=== PATIENT | male | born 1965 | race Caucasian/White ===

== ENCOUNTER → 2020-09-13 10:16 | Outpatient (BNVA) | payer OTHER, SELFPAY | PROVIDERS: PCP Internal Medicine; Visit Provider Internal Medicine ==

== ENCOUNTER → 2020-10-11 10:25 | Outpatient (BNVA) | payer OTHER, SELFPAY | PROVIDERS: PCP Internal Medicine; Visit Provider Internal Medicine ==

== ENCOUNTER → 2021-01-03 10:24 | Outpatient (BNVA) | payer OTHER, SELFPAY | PROVIDERS: PCP Internal Medicine; Visit Provider Internal Medicine ==

== ENCOUNTER 2021-04-11 07:47 | Outpatient (REF) | payer OTHER, SELFPAY ==
--- NOTE | ~2021-04-11 | XR_ITS ---
EXAMINATION: XR SHOULDER, RIGHT CLINICAL INFORMATION: Right shoulder pain. COMPARISON: None TECHNIQUE: AP external rotation, Grashey, scapular Y, and axillary views of the right shoulder. FINDINGS: Mild right acromioclavicular degenerative joint changes are seen. There is no acute fracture or dislocation. The glenohumeral joint is unremarkable. The soft tissues are unremarkable. XR/XR shoulder RT min 2V IMPRESSION: Mild right acromioclavicular degenerative joint changes. No acute abnormality.
== END 2021-04-11 07:48 | disposition home or self-care (01) ==
LOC: HO.HOSX 07:47
PROVIDERS: Visit Provider Physician Assistant
DX: M75.41 Impingement syndrome of right shoulder (principal)
CPT/HCPCS: 73030

== ENCOUNTER 2021-04-14 09:09 | Emergency (ER) | payer OTHER, SELFPAY ==
--- NOTE | ~2021-04-14 | XR_ITS ---
EXAMINATION: XR HAND, LEFT CLINICAL INFORMATION: Avulsion injury distal index finger. COMPARISON: None TECHNIQUE: PA, lateral, and oblique views of the left hand. FINDINGS: There is avulsion injury involving all the soft tissue/nail bed and bony avulsion distal dorsal aspect index finger distal phalangeal tuft. There is overlying dressing which obscures fine osseous and soft tissue detail. There is no dominant soft tissue foreign body. No destructive process or gas tracking in the soft tissues. No dislocation. The remainder of the bony structures appear intact. There are degenerative changes involving the DIP joints, greatest at the fourth and fifth fingers. XR/XR hand LT min 3V IMPRESSION: Soft tissue and bony avulsion at distal dorsal index finger involving the distal phalangeal tuft.
[2021-04-14 09:19] VITALS: BP 109/64; PULSE 95; RESP 18; TEMP 36.7; O2SAT 96; BMI 31.2
--- NOTE | 2021-04-14 10:12 | ED.EXTPRO ---
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 Denies injury to other area. Denies numbness, tingling, weakness. States last tetanus unknown MD Complaint: extremity pain and extremity swelling Related Data Home Medications Medication Instructions Recorded Confirmed albuterol sulfate 90 mcg/actuation 2 puff INHALATION Q6H PRN 09/13/20 aerosol inhaler (ProAir HFA) amlodipine 10 mg tablet 10 mg PO DAILY 09/13/20 lisinopril 10 mg tablet (Zestril) 10 mg PO DAILY 09/13/20 nabumetone 500 mg tablet (Relafen) 500 mg PO BID 09/13/20 simvastatin 20 mg tablet 20 mg PO DAILY 09/13/20 trazodone 100 mg tablet 100 mg PO DAILY 09/13/20 pantoprazole 20 mg tablet,delayed 40 mg PO DAILY 10/11/20 release triamcinolone acetonide 55 mcg 1 spray INTRANASAL DAILY PRN 10/11/20 nasal spray aerosol Previous Rx's Medication Instructions Recorded fluticasone propionate 100 1 inh INHALATION Q12H 30 Days #60 09/13/20 mcg/actuation blister powder for ea inhalation (Flovent Diskus) montelukast 10 mg tablet 10 mg PO BEDTIME #30 tab 03/03/21 cephalexin 500 mg capsule 500 mg PO QID 7 Days #28 cap 04/14/21 oxycodone-acetaminophen 5 mg-325 1 tab PO Q8H PRN 3 Days #9 tab 04/14/21 mg tablet (Percocet) Allergies Allergy/AdvReac Type Severity Reaction Status Date / Time No Known Allergies Allergy Verified 04/11/21 09:21 seasonal Allergy Intermediate sneezing Uncoded 04/11/21 09:21 Review of Systems Review of Systems: Constitutional: No Fever, No Chills Musculoskeletal: + joint pain, No Myalgias, + Joint Swelling Skin: + Skin Lesions, No rash Neuro: No Weakness, No Numbness, No Paresthesias Yes all other systems are reviewed and are negative Neurologic: Denies Sensory deficit (Neuro) FOR[facility], [facility] Past Medical History Attestation statement: The following information was validated with the patient. Medical History Allergic rhinosinusitis Asthma Cough due to bronchospasm Social History Social History (Updated 04/11/21 @ 09:22 by Agus Chapman) Advance Directives: No Advance Directives Information Provided: No Current occupational status: retired Current occupation: lt handed Physical Exam Vital Signs: Vital Signs: Last Vital Signs Temp 98.0 F 04/14/21 09:19 Pulse 95 04/14/21 09:19 Resp 18 04/14/21 09:19 BP 109/64 04/14/21 09:19 Pulse Ox 96 04/14/21 09:19 Body Mass Index 31.2 Const: General: cooperative, healthy appearing, comfortable and no acute distress Orientation/consciousness: patient oriented x3 Limitations: no limitations HENMT: Head: Yes normal to inspection Ears: hearing grossly normal bilaterally General nose exam: Normal external nose present Face and sinus: Yes normal facial exam Eyes: General: appearance normal, both eyes and all related structures EOM: EOMs intact bilaterally Neck: Neck: Yes normal visual inspection and Yes no meningeal signs Resp: Effort & Inspection: normal respiratory effort and no respiratory distress Cardio: Rate: regular rate Peripheral pulses: radial pulses present Skin: Rashes: no rashes Wounds: no wounds Neuro: General: patient oriented x3, tone normal and no meningeal signs Gait exam (Neuro): Normal gait present Sensory Exam: No Sensory deficit (Neuro) Extrem: Other: Please refer to image above. No appreciable visible/palpable bone. No fluctuance/induration Course Course Course Narrative: XR hand LT min 3V IMPRESSION: Soft tissue and bony avulsion at distal dorsal index finger involving the distal phalangeal tuft. >> case discussed with orthopedic KELLY Liriano. 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 On exam VS, NAD/nontoxic. Concern for fracture versus avulsion. Will obtain x-ray and apply dressing/update tetanus Procedures Nerve Block Nerve Block 1: Local Anesthetic: lidocaine 1% Amount of anesthesia used (mL): 5 Side: left Nerve Blocks: digital Procedure Successful: Yes Patient Tolerated Procedure: well Complications: none Discharge Plan Discharge Clinical Impression: Avulsion fracture Avulsion of finger tip Qualifiers: Encounter type: initial encounter Qualified Code(s): S61.209A - Unspecified open wound of unspecified finger without damage to nail, initial encounter Patient Disposition: Home, Self-Care Instructions: Hand Fracture (ED), Skin Avulsion (ED) Additional Instructions: You broke the tip of her finger, this has high likelihood of infection, Keflex as an antibiotic please take as prescribed Percocet will help with pain, please take only when pain is severe for the next 3 days PLEASE CALL THE ORTHOPEDIC HAND SPECIALIST FOR AN APPOINTMENT ON SATURDAY If area begins to look infected, is red, there is drainage from the area, pain becomes unbearable, or you have fever please return to the ED immediately Prescriptions: New cephalexin 500 mg capsule 500 mg PO QID 7 Days Qty: 28 RF: 0 oxycodone-acetaminophen [Percocet] 5-325 mg tablet 1 tab PO Q8H PRN (Reason: pain, severe) 3 Days Qty: 9 RF: 0 No Action montelukast 10 mg tablet 10 mg PO BEDTIME Qty: 30 RF: 2 pantoprazole 20 mg tablet,delayed release (DR/EC) 40 mg PO DAILY RF: 0 triamcinolone acetonide 55 mcg aerosol,spray 1 spray intranasal DAILY PRNRF: 0 albuterol sulfate [ProAir HFA] 90 mcg/actuation HFA aerosol inhaler 2 puff inhalation Q6H PRNRF: 0 nabumetone [Relafen] 500 mg tablet 500 mg PO BID RF: 0 lisinopril [Zestril] 10 mg tablet 10 mg PO DAILY RF: 0 amlodipine 10 mg tablet 10 mg PO DAILY RF: 0 simvastatin 20 mg tablet 20 mg PO DAILY RF: 0 trazodone 100 mg tablet 100 mg PO DAILY RF: 0 Flovent Diskus 100 mcg/actuation blister with device 1 inh inhalation Q12H 30 Days Qty: 60 RF: 2 Referrals: Lizzette Whitaker MD [Physician] - 3 days (On Saturday)
[2021-04-14] MEDS: Lidocaine HCl 1 % MPF 5 ML VIAL SUBCUT (10:21)
[2021-04-14] MEDS: cephALEXin 500 MG CAPSULE PO (10:21)
[2021-04-14] MEDS: oxyCODONE HCl Immed Release 5 MG TABLET PO (10:21)
[2021-04-14] MEDS: Diphth,Pertus(ACell),Tet Adult 0.5 ML SYRINGE IM (11:01)
[2021-04-14 11:07] VITALS: RESP 18
== END 2021-04-14 11:08 | disposition home or self-care (01) ==
PROVIDERS: Emergency Provider Emergency Medicine; PCP Internal Medicine
DX: S62.661B Nondisplaced fracture of distal phalanx of left index finger, initial encounter for open fracture (principal); W31.2XXA Contact with powered woodworking and forming machines, initial encounter; Y93.9 Activity, unspecified; Y92.019 Unspecified place in single-family (private) house as the place of occurrence of the external cause; Y99.9 Unspecified external cause status
CPT/HCPCS: 64450; 73130; 90471; 90715; 99283; 99284

== ENCOUNTER → 2021-04-20 09:05 | Outpatient (BNVA) | payer OTHER, SELFPAY | PROVIDERS: Visit Provider Orthopaedic Surgery ==

== ENCOUNTER → 2021-04-25 07:40 | Day surgery (SDC) | payer OTHER, SELFPAY ==
[2021-04-25 08:26] VITALS: BMI 30.7
[2021-04-25 08:36] VITALS: BP 142/87; PULSE 100; RESP 16; TEMP 36.5; O2SAT 97
--- NOTE | 2021-04-25 09:05 | MHC.SHP ---
Pre-Procedural Eval Section A Date of Service: 04/25/21 The patient is an INPATIENT: No Changes since office visit: No Cold of Flu in the past 2 weeks, No New Medical Problems, No Changes in Medication and No Patient answered all questions The History & Physical has been completed within 30 days and I have reviewed it.: Yes Section B Chief Complaint: Displaced Fracture of Distal Phalanx, Allergies: Allergies Allergy/AdvReac Type Severity Reaction Status Date / Time No Known Allergies Allergy Verified 04/20/21 09:17 seasonal Allergy Intermediate sneezing Uncoded 04/11/21 09:21 Plan I have reviewed the history and physical and performed a pertinent physical examination on my patient. No changes have occurred unless specified.
--- NOTE | 2021-04-25 09:06 | W.PM.OPN ---
Operative Note Operative Note Date of Service: 04/25/21 Narrative:
--- NOTE | 2021-04-25 10:20 | PC.NURSE ---
MD COLUNGA BY BEDSIDE AND EVALUATED PATIENT. SURGERY CANCELLED PER MD COLUNGA. MD WRAPPED PATIENT WITH XEROFORM, 2X2 AND CROBAN. PATIENT ALREADY HAS A FOLLOWUP APPT TO BE SEEN IN TWO WEEKS. PER PATIENT VERBALIZED HOW TO TAKE CARE OF HIS DRESSING. OKAY TO LEAVE. RIDE CALLED TO BE PICKED UP. NO OTHER COMPLAINTS.
--- NOTE | 2021-04-25 10:46 | PM.PNORT ---
Subjective Subjective Date of Service: 04/25/21 Principal diagnosis: Left index finger wound Interval history: The patient was seen in preop hold today for his left index finger. He said that he has been performing daily wound care and he feels like his finger looks quite a bit better. He was scheduled for a revision amputation for this table saw injury to the dorsal aspect of the left index finger involving the sterile nail matrix and the dorsal aspect of the distal phalanx. Physical Exam Vital Signs: Vital Signs: Last Vital Signs Temp 97.7 F 04/25/21 08:36 Pulse 100 04/25/21 08:36 Resp 16 04/25/21 08:36 BP 142/87 H 04/25/21 08:36 Pulse Ox 97 04/25/21 08:36 Body Mass Index 30.7 Extrem: Other: His swelling has improved, and he can now flex his left index finger fingertip to touch the thenar aspect of his hand, and bring it out into full extension. In evaluating the wound over the nail bed, he appears to have some healthy granulation tissue now, and the wound appears to have contracted some. Drainage on the dressing is scant. Again the nail plate is intact through the eponychial fold to a distance of about 4 mm, and a portion of the nail is intact more distally along the radial edge. Overall the wound appearance is improved with this granulation tissue and some contraction of the wound. No evidence of infection at present. Again the volar flap of tissue over the distal phalanx is healthy with good cap refill. Procedures Date of Service Date of Service: 04/25/21 Progress Note: A&P Assessment and plan (1) Open fracture of distal phalanx of left index finger: Status: Acute (2) Injury of nail bed of finger of left hand: Status: Acute Assessment and Plan: Assessment and plan: 1. Left index finger table saw injury involving the sterile matrix of the nail bed, and resulting in an open fracture of the dorsal aspect of the distal phalanx. We had planned to take him to the operating room today for a revision amputation. However, the wound bed does appear to have improved considerably. There is now healthy granulation tissue and some contraction of the wound bed making the wound smaller. I talked with the patient about this. They are certainly risks and benefits to anything including allowing this to heal. Risks of allowing this to heal are that he may still require surgery at a later date, or could develop osteomyelitis of the distal phalanx which would need to be treated with a 6 week plus course of antibiotics and further surgery. However, I think that there is a reasonable chance at this point that he may have adequate soft tissue coverage and not necessitate a revision amputation. Another possibility is that the fingernail may not, and will likely not, it here to this soft tissue that is healing over the bone. If this starts causing problems with catching on clothing etc., he knows that we can also return to the operating room to remove part or all of the nail apparatus as needed. With that being said, the patient is happy to try to allow this to heal with non operative management. I have canceled his surgery. He will continue his antibiotics until they are finished later this week. He will follow-up as scheduled for wound check with me in about 2 weeks. He knows to contact us sooner if he is having any problems. A new dressing was placed on the wound before he left. I did educate him about wound care which she will perform every day. Time Spent With Patient Time: Total time spent is greater than 50% in coordination of care (as documented) at patient's floor/unit and/or counseling patient: Time with patient: 15 - 24 minutes Quality Stroke Does the patient have a stroke diagnosis?: No VTE Prior VTE?: No VTE Risk Level:: Surgical - low VTE Device Contraindication: Treatment Not Indicated VTE Drug Contraindication: Treatment Not Indicated
== END ==
PROVIDERS: PCP Internal Medicine; Visit Provider Orthopaedic Surgery
DX: S62.631B Displaced fracture of distal phalanx of left index finger, initial encounter for open fracture (principal); Z53.8 Procedure and treatment not carried out for other reasons; W29.8XXA Contact with other powered hand tools and household machinery, initial encounter; Y93.9 Activity, unspecified; Y92.9 Unspecified place or not applicable; Y99.8 Other external cause status

== ENCOUNTER 2021-04-27 18:44 | Outpatient (REF) | payer OTHER, SELFPAY ==
--- NOTE | ~2021-04-27 | MR_ITS ---
EXAMINATION: MR SHOULDER WITHOUT CONTRAST, RIGHT CLINICAL INFORMATION: Impingement syndrome. Decreased range of motion. COMPARISON: Right shoulder radiographs dated 04/11/2021. TECHNIQUE: MRI of the shoulder without contrast was performed on a high-field scanner. FINDINGS: ROTATOR CUFF: Supraspinatus tendinosis with central full-thickness partial tearing measuring 1.2 x 1.4 cm (AP by ML). No muscle atrophy or fatty infiltration. BICEPS: Normal. CORACOACROMIAL ARCH: The undersurface of the acromion is curved with no subacromial spur. Moderate acromioclavicular osteoarthritis. Fluid within the subacromial subdeltoid bursa related to the full-thickness rotator cuff tendon defect. LABRUM/CAPSULE: Shallow fluid extending into the undersurface of the superior labrum, which could represent a nondisplaced undersurface tear. Edema adjacent to the inferior joint capsule, which could indicate a capsular sprain. GLENOHUMERAL JOINT/MARROW: Intact articular cartilage. Small glenohumeral joint effusion. MR/MR shoulder RT wo con IMPRESSION: 1. Supraspinatus tendinosis with a central full-thickness partial tear measuring 1.2 x 1.4 cm (AP by ML). 2. Moderate acromioclavicular osteoarthritis. 3. Possible nondisplaced undersurface tear of the superior labrum. 4. Edema adjacent to the inferior joint capsule, which could indicate a capsular sprain. 5. Small glenohumeral joint effusion.
== END 2021-04-27 18:45 | disposition home or self-care (01) ==
LOC: HO.MRI 18:44
PROVIDERS: PCP Internal Medicine; Visit Provider Physician Assistant
DX: M75.41 Impingement syndrome of right shoulder (principal)
CPT/HCPCS: 73221

== ENCOUNTER → 2021-05-08 10:24 | Outpatient (BNVA) | payer OTHER, SELFPAY | PROVIDERS: Visit Provider Orthopaedic Surgery ==

== ENCOUNTER → 2021-05-12 12:54 | Outpatient (BNVA) | payer OTHER, SELFPAY | PROVIDERS: Visit Provider Physician Assistant ==

== ENCOUNTER → 2021-06-12 14:42 | Outpatient (BNVA) | payer OTHER, SELFPAY | PROVIDERS: Visit Provider Physician Assistant ==

== ENCOUNTER 2021-06-14 06:12 | Day surgery (SDC) | payer OTHER, SELFPAY ==
[2021-06-07 15:43] VITALS: BMI 31.4
--- NOTE | 2021-06-13 08:55 | HO.ANESPROP2 ---
Documented by User: Pam Pena NP 06/13/21 09:00 HPI - Anesthesia Eval Consult details Narrative: 55yo M for Right Arthroscopic Rotator Cuff Repair PMFSH Active Problems Active Problems: All Active Problems (Updated 06/08/21 @ 12:36 by Astrid Wood RN) Internal impingement of right shoulder (Acute) Open fracture of distal phalanx of left index finger (Acute) Injury of nail bed of finger of left hand (Acute) Rotator cuff tear arthropathy of right shoulder (Acute) Asthma (Acute) Cough due to bronchospasm (Acute) Allergic rhinosinusitis (Acute) Past Medical History Medical History Allergic rhinosinusitis Arthritis Asthma Cough due to bronchospasm Elevated cholesterol Environmental allergies GERD (gastroesophageal reflux disease) HTN (hypertension) Seasonal allergies Surgical History Surgical History Hx of colonoscopy Social History Social History Are you a primary career orientation teacher to a significant other at home: No Do you presently have visiting nurse or other home services: No Patient Tobacco Use Status: Never used Tobacco Are you DNR?: No Advance Directives: Yes Advance Directives Information Provided: No Advance Directives on File: Yes Advance Directives Date on File: 06/14/21 Current occupational status: retired Current occupation: lt handed Meds Allergies Allergy/AdvReac Type Severity Reaction Status Date / Time Seasonal Allergies Allergy Sneezing, Verified 06/14/21 06:25 coughing Home Medications Medication Instructions Recorded Confirmed Last Taken Type albuterol sulfate 90 mcg/actuation 2 puff INHALATION Q6H PRN 09/13/20 06/07/21 Unknown History aerosol inhaler (ProAir HFA) amlodipine 10 mg tablet 10 mg PO DAILY 09/13/20 06/07/21 06/14/21 05:30 History lisinopril 10 mg tablet (Zestril) 10 mg PO DAILY 09/13/20 06/07/21 Unknown History nabumetone 500 mg tablet (Relafen) 500 mg PO BID 09/13/20 06/07/21 Unknown History simvastatin 20 mg tablet 20 mg PO DAILY 09/13/20 06/07/21 Unknown History trazodone 100 mg tablet 100 mg PO BEDTIME 09/13/20 06/07/21 Unknown History pantoprazole 20 mg tablet,delayed 40 mg PO DAILY 10/11/20 06/07/21 06/14/21 05:30 History release triamcinolone acetonide 55 mcg 1 spray INTRANASAL DAILY PRN 10/11/20 06/07/21 Unknown History nasal spray aerosol Exam Exam Date and Time: June 13, 2021 0855 Height,Weight and Vital Signs: Height 5 ft 5 in Weight 85.729 kg Assessment and Plan Assessment Anesthesia Assessment: Chart Reviewed Documented by User: Ailin Tomlinson MD 06/14/21 08:36 PMFSH Past Medical History Medical History Allergic rhinosinusitis Arthritis Asthma Cough due to bronchospasm Elevated cholesterol Environmental allergies GERD (gastroesophageal reflux disease) HTN (hypertension) Seasonal allergies Family History Family history of problems with anesthesia: No Surgical History Surgical History Hx of colonoscopy History of Problems with Anesthesia: No Social History Social History Are you a primary career orientation teacher to a significant other at home: No Do you presently have visiting nurse or other home services: No Patient Tobacco Use Status: Never used Tobacco Are you DNR?: No Advance Directives: Yes Advance Directives Information Provided: No Advance Directives on File: Yes Advance Directives Date on File: 06/14/21 Current occupational status: retired Current occupation: lt handed Meds Allergies Allergy/AdvReac Type Severity Reaction Status Date / Time Seasonal Allergies Allergy Sneezing, Verified 06/14/21 06:25 coughing Home Medications Medication Instructions Recorded Confirmed Last Taken Type albuterol sulfate 90 mcg/actuation 2 puff INHALATION Q6H PRN 09/13/20 06/07/21 Unknown History aerosol inhaler (ProAir HFA) amlodipine 10 mg tablet 10 mg PO DAILY 09/13/20 06/07/21 06/14/21 05:30 History lisinopril 10 mg tablet (Zestril) 10 mg PO DAILY 09/13/20 06/07/21 Unknown History nabumetone 500 mg tablet (Relafen) 500 mg PO BID 09/13/20 06/07/21 Unknown History simvastatin 20 mg tablet 20 mg PO DAILY 09/13/20 06/07/21 Unknown History trazodone 100 mg tablet 100 mg PO BEDTIME 09/13/20 06/07/21 Unknown History pantoprazole 20 mg tablet,delayed 40 mg PO DAILY 10/11/20 06/07/21 06/14/21 05:30 History release triamcinolone acetonide 55 mcg 1 spray INTRANASAL DAILY PRN 10/11/20 06/07/21 Unknown History nasal spray aerosol Exam Height,Weight and Vital Signs: Height 5 ft 5 in Weight 85.729 kg Vital Signs Temp Pulse Resp BP Pulse Ox 06/14/21 06:30 97.9 F 93 16 119/78 96 Airway Mallampati Class: III TM Dist: >3cm Neck ROM: Full Loose/Missing/Broken Teeth: Yes (Extractions) Heart: RRR Lungs: CTAB. No wheezes Assessment and Plan Assessment Anesthesia Assessment: Anesthesia Plan Discussed Final Anesthetic Review Family History of Problems with Anesthesia: No History of Problems with Anesthesia: No NPO: Yes ASA Class: II Final Preanesthetic Review: No Changes in Pt Med Stat, Meds/Allgs Chart Reviewed, Consent Obtained/Reviewed and Anes Risks/Benef Reviewed Patient Risk: Intermediate Procedure Risk: Low Assessment/Block/Sedation in SS: Assess/Block/Sedation-SS Anesthetic Plan Anesthetic Plan: GA and Regional Block (Right Interscalene brachial plexus block) Disposition: Standard PACU
[2021-06-14] VITALS (7 sets, daily range): BP systolic 109–127; BP diastolic 67–78; PULSE 83–93; RESP 16–20; TEMP 36.1–36.8; O2SAT 94–98
[2021-06-14] MEDS: Lactated Ringers 1,000 ML 100 ML IVCONT (06:43)
--- NOTE | 2021-06-14 07:27 | MHC.SHP ---
Pre-Procedural Eval Section A Date of Service: 06/14/21 The patient is an INPATIENT: No Changes since office visit: Yes Patient answered all questions; No Cold of Flu in the past 2 weeks, No New Medical Problems and No Changes in Medication The History & Physical has been completed within 30 days and I have reviewed it.: Yes Section B Chief Complaint: rotator cuff tear Allergies: Allergies Allergy/AdvReac Type Severity Reaction Status Date / Time Seasonal Allergies Allergy Sneezing, Verified 06/14/21 06:25 coughing Plan I have reviewed the history and physical and performed a pertinent physical examination on my patient. No changes have occurred unless specified.
--- NOTE | 2021-06-14 10:13 | PM.OP ---
Brief Operative Note Date of Service: 06/14/21 Pre-op diagnosis: rotator cuff tear Post-op diagnosis: other (rotator cuff tear, genet, adhesive capsulitis) Procedure: rotator cuff repair, SAD and capsulotomy Implants: mcallister and nephew 5.0 helacoil and 3 looped suture Surgeon: Lukas Arcos MD Anesthesia: GETA and regional Was an Energy Trading Analyst used for this Procedure?: Yes Energy Trading Analyst: Deandra Poole Estimated blood loss (mL): 10 IV fluids (mL): 1,000 Pathology: none sent Condition: stable Disposition: PACU
--- NOTE | 2021-06-14 10:26 | P.OP_ITS ---
Operative Note Operative Note Date of Service: 06/14/21 Narrative: Pre-op diagnosis: rotator cuff tear Post-op diagnosis: other (rotator cuff tear, genet, adhesive capsulitis) Procedure: rotator cuff repair, SAD and capsulotomy Implants: mcallister and nephew 5.0 helacoil and 3 looped suture Surgeon: Lukas Arcos MD Anesthesia: GETA and regional Was an Farm Or Ranch Animal Caretaker used for this Procedure?: Yes Farm Or Ranch Animal Caretaker: Deandra Poole Estimated blood loss (mL): 10 IV fluids (mL): 1,000 Pathology: none sent Condition: stable Disposition: PACU Procedure in detail: Patient was brought to the operating room and placed the the beach chair position. All bony prominences were well padded and the limb was prepped and draped in standard sterile fashion. A time out was called to identify proper site, proper procedure and proper surgeon. IV antibiotics per weight were administered. I began by making a posterolateral stab incision with a 15 blade. A blunt trochar was placed into the glenohumeral joint and I insufflated the joint with saline and a 30 degree arthroscope was placed. The joint was extremely tight and difficult to enter. I established an outside- in anterior portal just distal to the biceps tendon. Once in the joint there was synovitis of the anterior capsule. Cartilage, labrum,biceps tendon were intact. There was fraying adjacent to the biceps tendon. I used cautery to open the anterior interval and the anterior capsule. After the anterior inbterval synovectomy and capsulotomy I r emoved instrumentation and entered the subacromial space. His external rotation with 35-40 deg on so I was suprised by the joint stiffness. I then removed the trochar and entered the subacromial space. A direct lateral portal was then established and I performed a bursectomy. The cuff was then examined. There was frayingof the cuff especially the infraspinatus tndon body and the leading edge of the suprspinatus. I used a shaver to probe the tendon and there was a near full thickness tear of the leading edge of the suprspinatus. I debrided this to full thickness and then placed 3 looped sutures and attached it to a 5.0 helacoil anchor. Once this was done I performed a 5mm subacromial decompression and released the CA ligament. I then re-examined the suff and took my final pictures. All instrumentation was removed and the protals closed with nylon and covered with sterile dressing. The patient was and brought to the recovery room in stable condition. There were no known complications.
== END 2021-06-14 12:02 | disposition home or self-care (01) ==
PROVIDERS: PCP Internal Medicine; Visit Provider Orthopaedic Surgery
PROC: (CPT 29827; principal; 2021-06-14 07:30)
DX: M75.101 Unspecified rotator cuff tear or rupture of right shoulder, not specified as traumatic (principal); M75.01 Adhesive capsulitis of right shoulder; M25.611 Stiffness of right shoulder, not elsewhere classified; M12.811 Other specific arthropathies, not elsewhere classified, right shoulder; J45.909 Unspecified asthma, uncomplicated; Z79.51 Long term (current) use of inhaled steroids; Z79.899 Other long term (current) drug therapy
CPT/HCPCS: 29827; 29826; C1713; J0171; J0690; J1100; J2250; J2370; J2405; J3010

== ENCOUNTER → 2021-06-26 13:09 | Outpatient (BNVA) | payer OTHER, SELFPAY | PROVIDERS: Visit Provider Physician Assistant ==

== ENCOUNTER → 2021-07-24 13:04 | Outpatient (BNVA) | payer OTHER, SELFPAY | PROVIDERS: Visit Provider Physician Assistant ==

== ENCOUNTER → 2021-09-04 09:39 | Outpatient (BNVA) | payer OTHER, SELFPAY | PROVIDERS: Visit Provider Orthopaedic Surgery ==

== ENCOUNTER 2021-09-20 10:58 | Outpatient (REF) | payer OTHER, SELFPAY ==
--- NOTE | ~2021-09-20 | XR_ITS ---
EXAMINATION: XR CHEST CLINICAL INFORMATION: Asthma COMPARISON: Previous chest x-ray from 2008 TECHNIQUE: 2 views of the chest were obtained. FINDINGS: The cardiac and mediastinal contours are stable. The lungs are clear. There is no pleural effusion or pneumothorax. There are new postsurgical changes to the right shoulder. XR/XR chest 2V IMPRESSION: No evidence for acute disease in the chest.
--- NOTE | ~2021-09-20 | XR_ITS ---
EXAMINATION: XR SINUSES CLINICAL INFORMATION: Asthma. COMPARISON: None TECHNIQUE: 3 views of the sinuses were obtained. FINDINGS: There is good opacification of bilateral paranasal sinuses and mastoid air cells. No mucoperiosteal thickening or air-fluid levels seen. The bony sinus khan are intact. The soft tissues are normal. The mastoid air cells are well-aerated. XR/XR sinus thao view IMPRESSION: Unremarkable sinus exam. Unremarkable mastoid sinus exam.
== END 2021-09-20 10:59 | disposition home or self-care (01) ==
LOC: HO.XRAY 10:58
PROVIDERS: PCP Internal Medicine; Visit Provider Internal Medicine
DX: J45.909 Unspecified asthma, uncomplicated (principal)
CPT/HCPCS: 70210; 71046

== ENCOUNTER 2021-10-02 08:00 | Outpatient (RCR) | payer OTHER, SELFPAY ==
--- NOTE | 2021-06-20 08:59 | MHC.PT.EP ---
[facility] [place] Office [place] [facility] [place] Office [address] Harman Jones [address] [phone] F: [phone] F: [phone] F: [phone] F: [phone] Physical Therapy Plan of Care Date of Evaluation: Date of Surgery: 06/14/21 Diagnosis: S/P ROTATOR CUFF REPAIT Assessment: JOSEF PRESENTS S/P RCR AND SAD 06/14/21. UPON EXAM HE DEMONSTRATES THE EXPECTED IMPAIRMENTS OF DECREASED ROM, DECREASED STRENGTH, ALTERED POSTURE AND POSITIONING, INCREASED EDEMA AND PAIN. FUNCTIONAL LIMITATIONS INCLUDE DECREASED ABILITY TO PERFORM ADLs AND HOMEMAKING TASKS, DECREASED ABILITY TO PERFORM LIFTING, REACHING, PUSHING AND PULLING, INABILITY TO REACH INTO CABINETS OR SHELVES. DECREASED PARTICIPATION IN COMMUNITY AND RECREATIONAL ACTIVITIES, DISRUPTED SLEEP. Frequency and Duration: The patient will be seen 2 X WEEK FOR 12 WEEKS Short Term Goals: initiate HEP and promote self management of symptoms in 2 visits Full PROM in 6 weeks Sediment Remediation Consultant Goals: Full, pain free ROM in 12 weeks Full UE strength, pain free in 16 weeks To perform computer and homemaking without restriction and pain no greater than 2/10 in [address] at minimum of 5# into cabinet at shoulder height in 12 weeks [ End ] Treatment Plan: Modalities to reduce pain, spasms and effusion. Manual therapy to restore motion and function. Therapeutic exercise to improve strength and flexibility. Neuromuscular re-education for posture and balance. Therapeutic activities to return to functional activities of daily living. Electronically signed by: HECTOR BLACKWOOD PT, DPT Please sign and return to therapist. Thank you for your referral.
== END 2021-11-13 14:59 | disposition home or self-care (01) ==
LOC: HO.PT 08:00
PROVIDERS: Visit Provider Orthopaedic Surgery
DX: M75.41 Impingement syndrome of right shoulder (principal); M75.101 Unspecified rotator cuff tear or rupture of right shoulder, not specified as traumatic; M12.811 Other specific arthropathies, not elsewhere classified, right shoulder
CPT/HCPCS: 97110; 97140; 97161

== ENCOUNTER → 2021-10-16 09:44 | Outpatient (BNVA) | payer OTHER, SELFPAY | PROVIDERS: PCP Internal Medicine; Visit Provider Internal Medicine ==

== ENCOUNTER → 2021-11-27 09:27 | Outpatient (BNVA) | payer OTHER, SELFPAY | PROVIDERS: PCP Internal Medicine; Visit Provider Orthopaedic Surgery | DX: M71.21 Synovial cyst of popliteal space [Baker], right knee (principal); Z98.890 Other specified postprocedural states | CPT/HCPCS: 20610; J1100 ==

== ENCOUNTER 2021-12-13 09:00 | Outpatient (RCR) | payer OTHER, SELFPAY | END 2022-01-01 12:47 | disposition home or self-care (01) | LOC: HO.PT 09:00 | PROVIDERS: Visit Provider Physician Assistant Surgical | DX: M22.41 Chondromalacia patellae, right knee (principal); M22.42 Chondromalacia patellae, left knee | CPT/HCPCS: 97035; 97110; 97140; 97161 ==

== ENCOUNTER 2022-08-21 12:18 | Emergency (ER) | payer OTHER, SELFPAY ==
--- NOTE | ~2022-08-21 | XR_ITS ---
EXAMINATION: XR CHEST CLINICAL INFORMATION: Cough and shortness of breath COMPARISON: 09/20/2021 TECHNIQUE: 2 views of the chest were obtained. FINDINGS: Lungs are well-inflated and clear. Trachea is midline in position. No interstitial disease, consolidation or mass. No pleural effusion or pneumothorax. Cardiac silhouette and pulmonary vessels are normal in size. The mediastinum and andres have normal contour. Appears to be a small suture anchor in the right femoral head. Otherwise, the visualized bones, and upper abdomen, are unremarkable. XR/XR chest 2V IMPRESSION: No acute cardiopulmonary abnormality. No evidence of pneumonia.
--- NOTE | 2022-08-21 12:38 | ED_ITS ---
HPI - SOB/Dyspnea General Chief Complaint: Upper Respiratory Symptoms <KELLY Ochoa - Last Filed: 08/21/22 12:43> Stated Complaint: COVID+/SOB/Cough <KELLY Ochoa - Last Filed: 08/21/22 12:43> Time Seen by Provider: 08/21/22 14:26 <KELLY Ochoa - Last Filed: 08/21/22 12:43> Source: patient <Summer Lopez CNP - Last Filed: 08/21/22 15:04> Mode of arrival: ambulatory <Summer Lopez CNP - Last Filed: 08/21/22 15:04> Limitations: no limitations <Summer Lopez CNP - Last Filed: 08/21/22 15:04> History of Present Illness HPI Narrative: Patient is a 56-year-old male who presents to the emergency department for evaluation of increasing shortness of breath and cough. Patient reports symptom onset to be approximately 2 weeks ago. Last week he was evaluated for similar symptoms, states he was given a prescription for azithromycin, prednisone, and Tessalon Perles which did provide improvement in symptoms initially. Yesterday he took a home COVID-19 test which resulted as positive. He states that his and his sister are also ill with similar symptoms. He denies fevers, chills, sore throat, chest pain, dyspnea on exertion. <Summer Lopez CNP - Last Filed: 08/21/22 15:04> Related Data Home Medications: Home Medications Medication Instructions Recorded Confirmed amlodipine 10 mg tablet 10 mg PO DAILY 09/13/20 10/16/21 nabumetone 500 mg tablet (Relafen) 500 mg PO BID 09/13/20 10/16/21 simvastatin 20 mg tablet 20 mg PO DAILY 09/13/20 10/16/21 trazodone 100 mg tablet 100 mg PO BEDTIME 09/13/20 10/16/21 pantoprazole 20 mg tablet,delayed 40 mg PO DAILY 10/11/20 10/16/21 release triamcinolone acetonide 55 mcg 1 spray intranasal DAILY PRN 10/11/20 10/16/21 nasal spray aerosol Allergic Symptoms Previous Rx's Medication Instructions Recorded fluticasone 250 mcg-salmeterol 50 1 inh inhalation BID COUGH/ ASTHMA 09/04/21 mcg/dose blistr powdr for 30 days #60 ea inhalation (Advair Diskus) albuterol sulfate 90 mcg/actuation 2 puff inhalation Q6H PRN 09/25/21 aerosol inhaler (ProAir HFA) Shortness Of Breath Or Wheezing 30 days #8.5 grams montelukast 10 mg tablet 10 mg PO BEDTIME #30 tabs 05/29/22 benzonatate 100 mg capsule 100 mg PO BID PRN cough #14 caps 08/21/22 hydrocodone-homatropine 5 mg-1.5 5 ml PO Q4-6H PRN cough #200 mL 08/21/22 mg/5 mL (5 mL) oral syrup (Hycodan) <KELLY Ochoa - Last Filed: 08/21/22 12:43> Allergies/Adverse Reactions: Allergies Allergy/AdvReac Type Severity Reaction Status Date / Time Seasonal Allergies Allergy Sneezing, Verified 10/16/21 10:11 coughing <KELLY Ochoa - Last Filed: 08/21/22 12:43> Review of Systems Review of Systems: Constitutional: No fever. No chills. No weakness. No fatigue. ENT/ Mouth: No Ear Pain, positive Nasal Congestion, no sore throat, No Rhinorrhea, No Swallowing Difficulty Skin: No rash or itching. Cardiovascular: No chest pain. No palpitations. Respiratory: Positive shortness of breath. Positive cough. No sputum production. Gastrointestinal: No nausea. No vomiting. No diarrhea. No abdominal pain. Genitourinary: No burning micturition. No urinary frequency. Neurologic: No headache. No dizziness. No syncope. No numbness or tingling in the extremities. Musculoskeletal: No muscle pain. No back pain. No joint pain or stiffness. <Summer Lopez CNP - Last Filed: 08/21/22 15:04> Yes all other systems are reviewed and are negative <Summer Lopez CNP - Last Filed: 08/21/22 15:04> [facility] Past Medical History Attestation statement: The following information was validated with the patient. <Summer Lopez CNP - Last Filed: 08/21/22 15:04> Source: old records reviewed <Summer Lopez CNP - Last Filed: 08/21/22 15:04> Medical History: Medical History Allergic rhinosinusitis Arthritis Asthma Cough due to bronchospasm Elevated cholesterol Environmental allergies GERD (gastroesophageal reflux disease) HTN (hypertension) Seasonal allergies <KELLY Ochoa - Last Filed: 08/21/22 12:43> Surgical History: Surgical History Hx of colonoscopy <KELLY Ochoa - Last Filed: 08/21/22 12:43> Social History Social History: Social History Are you a primary account executive healthcare to a significant other at home: No Do you presently have visiting nurse or other home services: No Alcohol intake: current Alcohol intake frequency: holidays/special occasions only Patient Tobacco Use Status: Never used Tobacco Smoked in Last 30 Days: No Use of substances other than those prescribed or required for medical reasons: No Advance Directives: Yes Advance Directives on File: Yes Advance Directives Date on File: 06/14/21 Current occupational status: retired Current occupation: lt handed <KELLY Ochoa - Last Filed: 08/21/22 12:43> Physical Exam Vital Signs: Vital Signs: Last Vital Signs Temp 97.1 F 08/21/22 12:39 Pulse 104 H 08/21/22 14:29 Resp 16 08/21/22 14:29 BP 135/95 H 08/21/22 14:29 Pulse Ox 94 08/21/22 14:29 O2 Del Method 08/21/22 14:29 BMI result Body Mass Index 32.4 <KELLY Ochoa - Last Filed: 08/21/22 12:43> Vital Signs: Last Vital Signs Temp 97.1 F 08/21/22 12:39 Pulse 104 H 08/21/22 14:29 Resp 16 08/21/22 14:29 BP 135/95 H 08/21/22 14:29 Pulse Ox 94 08/21/22 14:29 O2 Del Method 08/21/22 14:29 BMI result Body Mass Index 32.4 <Summer Lopez CNP - Last Filed: 08/21/22 15:04> Appearance: Alert.?Oriented to person, place and time. No acute distress.?Normal affect. Eyes: Pupils equal, round and reactive to light.? ENT: TM normal bilaterally. Pharynx normal.?? Neck: Normal inspection.? Neck supple.??No cervical adenopathy CVS: Heart sounds normal. Normal heart rate and rhythm.? Pulses normal.?? Respiratory: No respiratory distress.? Lung sounds clear to auscultation bilaterally?? Abdomen: Soft and non-tender. Normoactive bowel sounds. Skin: Skin warm and dry.? Normal skin color.? ? Extremities: No lower extremity edema.? Neuro: Moves all extremities spontaneously. Sensation intact bilaterally. No motor deficits. Ambulates with normal steady gait. <Summer Lopez CNP - Last Filed: 08/21/22 15:04> Course Course Course Narrative: RME--56 yo M w/PMHx asthma and COVID+ on home test yesterday c/o increasing SOB and nonproductive cough Was seen last week for similar sx, finished course of Z-nati, prednisone and tessalon pearls with relief Lungs CTA on exam, nontoxic appearing, tachycardic in triage but actively coughing CXR, albuterol, Tessalon Perles and Hycodan ordered in triage <KELLY Ochoa - Last Filed: 08/21/22 12:43> Medications Administered Discontinued Medications Generic Name Dose Route Start Last Admin Trade Name Freq PRN Reason Stop Dose Admin Albuterol Sulfate 4 puff 08/21/22 12:39 08/21/22 13:22 Albuterol Sulfate 90 Mcg 8 Gm Inhaler INHALE 08/21/22 12:40 4 puff ONCE ONE Administration <KELLY Ochoa - Last Filed: 08/21/22 12:43> Medications Administered Discontinued Medications Generic Name Dose Route Start Last Admin Trade Name Freq PRN Reason Stop Dose Admin Albuterol Sulfate 4 puff 08/21/22 12:39 08/21/22 13:22 Albuterol Sulfate 90 Mcg 8 Gm Inhaler INHALE 08/21/22 12:40 4 puff ONCE ONE Administration <Summer Lopez CNP - Last Filed: 08/21/22 15:04> Medical Decision Making Medical Decision Making MDM Narrative: Patient is a 56-year-old male with a past medical history of asthma, hypertension, GERD who presents to the emergency department for evaluation of shortness of breath and cough in the setting of COVID-19 infection. Patient was symptom onset 2 weeks ago, positive testing for COVID-19 as of yesterday. At this time be outside of the window for treatment with Paxlovid. He is nontoxic in appearance, ambulatory with a steady gait, no respiratory distress, lung sounds are clear. Chest x-ray obtained is without evidence of pneumonia. Reviewed RME from triage, patient was given an albuterol inhaler was instructed to take 4 puffs at that time, he reports improvement in his shortness of breath currently. He remains mildly tachycardic with heart rate 104, no tachypnea or hypoxia. We reviewed bronchitis, expected duration of symptoms after viral illnesses. We discussed plan of care for discharge home, will send prescription for Hycodan and Tessalon to patient's pharmacy. Discussed worrisome signs and symptoms that would warrant re-evaluation in the emergency department, otherwise advised outpatient follow-up with primary care provider. All questions were answered. He is stable for discharge. <Summer Lopez CNP - Last Filed: 08/21/22 15:04> Differential Diagnosis Differential Diagnoses: The differential diagnosis associated with the presentation includes (As noted above) <Summer Lopez CNP - Last Filed: 08/21/22 15:04> Independent Interpretation I performed an independent interpretation of an: Plain X-Ray <Summer Lopez CNP - Last Filed: 08/21/22 15:04> Interpretation: I personally interpreted chest x-ray and agree with the radiologist impression <Summer Lopez CNP - Last Filed: 08/21/22 15:04> Radiology Impression Discussion of test interpretation with radiology: I have reviewed the radiologist's reading. <Summer Lopez CNP - Last Filed: 08/21/22 15:04> Radiologist Impression: XR/XR chest 2V IMPRESSION: No acute cardiopulmonary abnormality. No evidence of pneumonia. <Summer Lopez CNP - Last Filed: 08/21/22 15:04> Prescription Management I considered prescription management with: Other (Patient provided with albuterol inhaler from the emergency department, sending prescription for Tessalon and hike a did to patient's pharmacy) <Summer Lopez CNP - Last Filed: 08/21/22 15:04> Chronic Conditions Patient?s care impacted by: Hypertension and Other (Asthma) <Summer Lopez CNP - Last Filed: 08/21/22 15:04> Discharge Plan Discharge Clinical Impression: COVID-19, Bronchitis <KELLY Ochoa - Last Filed: 08/21/22 12:43> Patient Disposition: Home, Self-Care <KELLY Ochoa - Last Filed: 08/21/22 12:43> Instructions: Acute Bronchitis (ED) <KELLY Ochoa - Last Filed: 08/21/22 12:43> Additional Instructions: As we discussed, please continue to rest over the next few days. CDC guidance for isolation with COVID-19 infection advises 5 days of isolation from symptom onset or positive testing whichever came first. You have been ill for greater than 5 days. You may end isolation if your symptoms are improving and you are without a fever for 24 hour. Without the use of Tylenol or ibuprofen. Use albuterol inhaler 2 puffs every 4-6 hours as needed for shortness of breath or wheezing. A prescription for Hycodan cough syrup and Tessalon was sent to your pharmacy Please return back to emergency department with any new or worsening symptoms or concerns. Please follow-up with your primary care provider as needed for persistent symptoms. <KELLY Ochoa - Last Filed: 08/21/22 12:43> Prescriptions: New benzonatate 100 mg capsule 100 mg PO BID PRN (Reason: cough) Qty: 14 0RF hydrocodone-homatropine [Hycodan] 5-1.5 mg/5 mL (5 mL) syrup 5 ml PO Q4-6H PRN (Reason: cough) Qty: 200 0RF Rx Instructions: Partial Fill upon patient request. No Action albuterol sulfate [ProAir HFA] 90 mcg/actuation HFA aerosol inhaler 2 puff inhalation Q6H PRN (Reason: Shortness Of Breath Or Wheezing) 30 Days Qty: 8.5 3RF montelukast 10 mg tablet 10 mg PO BEDTIME Qty: 30 2RF pantoprazole 20 mg tablet,delayed release (DR/EC) 40 mg PO DAILY triamcinolone acetonide 55 mcg aerosol,spray 1 spray intranasal DAILY PRN (Reason: Allergic Symptoms) nabumetone [Relafen] 500 mg tablet 500 mg PO BID amlodipine 10 mg tablet 10 mg PO DAILY simvastatin 20 mg tablet 20 mg PO DAILY trazodone 100 mg tablet 100 mg PO BEDTIME fluticasone propion-salmeterol [Advair Diskus] 250-50 mcg/dose blister with device 1 inh inhalation BID 30 Days Qty: 60 2RF <KELLY Ochoa - Last Filed: 08/21/22 12:43> Referrals: Zaheer Munoz III, MD [Primary Care Provider] - <KELLY Ochoa - Last Filed: 08/21/22 12:43>
[2022-08-21 12:39] VITALS: BP 124/84; PULSE 110; RESP 20; TEMP 36.2; O2SAT 97; BMI 32.4
[2022-08-21] MEDS: Albuterol Sulfate 90 MCG 8 GM INHALER 4 PUFF INHALE (13:22)
[2022-08-21 13:25] VITALS: PULSE 102; RESP 16; O2SAT 97
[2022-08-21 14:29] VITALS: BP 135/95; PULSE 104; RESP 16; O2SAT 94
[2022-08-21] MEDS: Benzonatate 100 MG CAPSULE PO (14:59)
[2022-08-21] MEDS: HYDROcodone/Homat 5/1.5/5 ML 5 ML SYRUP PO (14:59)
--- NOTE | 2022-08-21 15:01 | PC.NURSE ---
patient a&ox3, c/o cough, pt medicated per order, call lr within reach, will continue to monitor
== END 2022-08-21 15:33 | disposition home or self-care (01) ==
PROVIDERS: Emergency Provider Emergency Medicine; PCP Internal Medicine
DX: U07.1 COVID-19 (principal); J40 Bronchitis, not specified as acute or chronic; I10 Essential (primary) hypertension; E78.5 Hyperlipidemia, unspecified; Z79.02 Long term (current) use of antithrombotics/antiplatelets; Z79.899 Other long term (current) drug therapy
CPT/HCPCS: 71046; 94640; 94664; 99284

== ENCOUNTER 2024-08-29 05:40 | Emergency (ER) | payer BC, SELFPAY ==
--- NOTE | ~2024-08-29 | XR_ITS ---
CLINICAL HISTORY: cough, chest tightness Chest one view Comparison: CR/SR - XR CHEST 2V - 08/21/22 13:44 EST CR/SR - XR CHEST 2V - 09/20/21 11:56 EST Findings: No consolidation, venous distention, pulmonary edema, pleural effusion or pneumothorax. Stable cardiomediastinal silhouette. Suture anchor right humeral head. Otherwise bones intact. Upper abdomen unremarkable. IMPRESSION: No acute cardiopulmonary process. This document has been electronically signed by: Kyrie Terry MD on 08/29/2024 06:57:11
[2024-08-29 06:01] VITALS: BP 129/86; PULSE 81; RESP 18; TEMP 36.8; O2SAT 96; BMI 34.2
--- NOTE | 2024-08-29 06:44 | ED_ITS ---
HPI - General Adult General Chief complaint: Upper Respiratory Symptoms Stated complaint: cough Time Seen by Provider: 08/29/24 06:30 Source: patient and family Mode of arrival: ambulatory Limitations: no limitations History of Present Illness ED Provider: Esdras WALTON narrative: Patient is a 59-year-old male with history of asthma presenting to the emergency department with complaint of cough and shortness of breath since August 17. States that he was visiting with his grandson in [place] who was sick with similar symptoms and patient developed symptoms on 08/17. Complains of cough, shortness of breath, nasal congestion, sinus pain and pressure. Denies fevers, chills, body aches. He reports that his symptoms had begun to improve, then on Saturday of this past week symptoms worsened again. He went to urgent care on and was prescribed Augmentin for sinusitis as well as a course of prednisone. States that he feels this dose of prednisone is lower than the dose he typically receives for episodes of bronchitis. Feels his symptoms have not improved since starting these medications. MD complaint: shortness of breath, cough Onset (ago): day(s) Associated symptoms: cough, headaches and shortness of breath Treatments prior to arrival: other Related Data Home Medications ?Medication ?Instructions ?Recorded ?Confirmed amlodipine 10 mg tablet 10 mg PO DAILY 09/13/20 10/16/21 nabumetone 500 mg tablet (Relafen) 500 mg PO BID 09/13/20 10/16/21 simvastatin 20 mg tablet 20 mg PO DAILY 09/13/20 10/16/21 trazodone 100 mg tablet 100 mg PO BEDTIME 09/13/20 10/16/21 pantoprazole 20 mg tablet,delayed 40 mg PO DAILY 10/11/20 10/16/21 release triamcinolone acetonide 55 mcg 1 spray intranasal DAILY PRN 10/11/20 10/16/21 nasal spray aerosol Allergic Symptoms Previous Rx's ?Medication ?Instructions ?Recorded fluticasone 250 mcg-salmeterol 50 1 inh inhalation BID COUGH/ ASTHMA 09/04/21 mcg/dose blistr powdr for 30 days #60 ea inhalation (Advair Diskus) albuterol sulfate 90 mcg/actuation 2 puff inhalation Q6H PRN 09/25/21 aerosol inhaler (ProAir HFA) Shortness Of Breath Or Wheezing 30 days #8.5 grams benzonatate 100 mg capsule 100 mg PO BID PRN cough #14 caps 08/21/22 codeine 10 mg-guaifenesin 100 mg/5 5 ml PO Q6H PRN cough #118 mL 08/21/22 mL oral liquid montelukast 10 mg tablet 10 mg PO BEDTIME Allergic Rhinitis 09/18/22 90 days #90 tabs benzonatate 100 mg capsule 100 mg PO TID PRN cough #20 caps 08/29/24 prednisone 20 mg tablet See Rx Instructions .Route 08/29/24 .COMPLEX #18 tabs Allergies Allergy/AdvReac Type Severity Reaction Status Date / Time Seasonal Allergies Allergy Sneezing, Verified 08/29/24 06:03 coughing Review of Systems Review of Systems: As per HPI Yes all other systems are reviewed and are negative Constitutional: Constitutional: Reports as per HPI PMFSH Past Medical History Medical History Allergic rhinosinusitis Arthritis Asthma Cough due to bronchospasm Elevated cholesterol Environmental allergies GERD (gastroesophageal reflux disease) HTN (hypertension) Seasonal allergies Surgical History Hx of colonoscopy Social History Social History Are you a primary health care sanitary technician to a significant other at home: No Do you presently have visiting nurse or other home services: No Alcohol intake: current Alcohol intake frequency: holidays/special occasions only Patient Tobacco Use Status: Never used Tobacco Advance Directives: Yes Advance Directives on File: Yes Advance Directives Date on File: 06/14/21 Current occupational status: retired Current occupation: lt handed Physical Exam ED Vital Signs: Vital Signs - 24 hr 08/29/24 06:01 Temperature 98.3 F Pulse Rate 81 Respiratory Rate 18 Blood Pressure 129/86 Pulse Oximetry 96 Oxygen Delivery Method Room Air BMI result Body Mass Index 34.2 Vital signs have been reviewed and appear to be correct. Blood pressure normal. Heart rate normal. Respiratory rate normal. Temperature normal. Oxygen saturation normal. Const General: cooperative, healthy appearing and no acute distress Orientation/consciousness: oriented to person, oriented to place, oriented to time and patient oriented x3 Limitations: no limitations HENMT Head: Yes normocephalic and Yes atraumatic Ears: external ears normal General nose exam: Normal external nose present Face and sinus: Yes face symmetric Mouth: oropharynx normal and moist mucous membranes Throat: Yes uvula midline Eyes Pupils: Equal, round and reactive pupils present Neck Neck: Yes normal visual inspection and Yes supple Resp Effort & Inspection: normal respiratory effort and able to speak in complete sen tences Auscultation: clear to auscultation bilaterally Cardio Rate: regular rate Rhythm: regular rhythm Heart sounds: S1 normal heart sound present and S2 normal heart sound present GI Palpation (GI): Soft to palpation and nontender Auscultation: normoactive bowel sounds General: Yes no CVA tenderness Back/Spine/Pelvis Back: no CVA tenderness Skin General skin exam: elasticity normal and turgor normal Neuro General: oriented to person, oriented to place, oriented to time, patient oriented x3, moves all extremities, no focal motor deficits and CN's II-XI intact bilaterally Cranial nerves: Yes Equal, round and reactive pupils present Cognition (Neuro): normal cognition Extrem General: Yes full ROM, Yes no pedal edema and Yes no calf tenderness Psych Mental Status: mental status grossly normal Affect: normal affect Thought process: Normal thought process present Medical Decision Making Medical Decision Making [facility] Narrative: Patient is a 59-year-old male with history of asthma presenting to the emergency department with complaint of cough and shortness of breath since August 17. On exam patient is awake, A+Ox3, nontoxic appearing, VS WNL, afebrile, normal neurological exam without focal deficits, physical exam findings as above. Given reported symptoms and physical exam findings, initial differential i ncludes but is not limited to viral illness, COVID, flu, RSV, bronchitis, pneumonia. Viral serology positive for RSV. X-ray chest notable for no evidence of pneumonia. My interpretation is in agreement with the radiologist's interpretation. Results discussed with patient and all questions answered. Isolation precautions discussed with patient as well as return precautions. Advised patient to continue on Augmentin for sinusitis, will increase prednisone dosage. Sent new prednisone taper and advised patient to continue previous prednisone taper. Follow up with PCP. Patient verbalized understanding of and agreement with plan. Differential Diagnosis Differential Diagnoses: The differential diagnosis associated with the prese ntation includes As per [facility] Admission/Observation Consideration of admission/observation: Escalation of care including admissio n/observation considered Patient would have been admitted to the hospital had their work up had any findings where hospital admission was appropriate and their clinical presentation warranted hospital admission. Lab Data [facility] Lab Attestation statement: I reviewed the patient's lab results. as per [facility] Labs: Lab Results 08/29/24 Range/Units 06:26 Influenza Type A (PCR) NEGATIVE (Negative) Influenza Type B (PCR) NEGATIVE (Negative) RSV RNA Qual (PCR) POSITIVE A (Negative) SARS-CoV-2 RNA (RT-PCR) NEGATIVE (Negative) Independent Interpretation I performed an independent interpretation of an: Plain X-Ray Interpretation: No evidence of pneumonia on chest x-ray Radiology Impression Discussion of test interpretation with radiology: I have reviewed the radiologist's reading. Radiologist Impression: Findings: No consolidation, venous distention, pulmonary edema, pleural effusion or pneumothorax. Stable cardiomediastinal silhouette. Suture anchor right humeral head. Otherwise bones intact. Upper abdomen unremarkable. IMPRESSION: No acute cardiopulmonary process. Independent Historian Clinical information obtained from an independent historian. History obtained from or confirmed by: Spouse External Record Review External record reviewed: Inpatient record, Office record and Outpatient record Prescription Management I considered prescription management with: Other Discharge Plan Discharge Clinical Impression: RSV infection Patient Disposition: Home, Self-Care Instructions: Respiratory Syncytial Virus (ED) Additional Instructions: You were evaluated in the emergency department today for shortness of breath and cough. You tested positive for RSV which is a respiratory viral illness which will resolve on its own with time and rest. You should ensure adequate fluid intake, and can use Tylenol 650 mg or ibuprofen 600 mg every 6 hours as needed for fever or discomfort. We recommend that you begin using nasal saline spray several times daily to thin and decrease your nasal secretions. You can continue to take the Augmentin which was previously prescribed to you for your sinus symptoms. You are being prescribed a higher dose of prednisone, begin taking the new prescription and discard the previous prescription. You may still be contagious for several days, avoid being around any 's especially those under 3-month-old, anyone immunocompromised or elderly until your symptoms improve. Please follow-up with your primary care provider this week. Return to the emergency department if you develop chest pain, worsening shortness of breath, difficulty swallowing, fever 100.4? F or greater or any other concerning symptoms. Prescriptions: New prednisone 20 mg tablet See Rx Instructions .ROUTE .COMPLEX Qty: 18 0RF Rx Instructions: 60 mg (3 tabs) x3 days, then 40 mg (2 tabs) x3 days, then 20 mg (1 tab) x3 days benzonatate 100 mg capsule 100 mg PO TID PRN (Reason: cough) Qty: 20 0RF No Action albuterol sulfate [ProAir HFA] 90 mcg/actuation HFA aerosol inhaler 2 puff inhalation Q6H PRN (Reason: Shortness Of Breath Or Wheezing) 30 Days Qty: 8.5 3RF montelukast 10 mg tablet 10 mg PO BEDTIME 90 Days Qty: 90 3RF benzonatate 100 mg capsule 100 mg PO BID PRN (Reason: cough) Qty: 14 0RF codeine-guaifenesin 10-100 mg/5 mL liquid 5 ml PO Q6H PRN (Reason: cough) Qty: 118 0RF pantoprazole 20 mg tablet,delayed release (DR/EC) 40 mg PO DAILY triamcinolone acetonide 55 mcg aerosol,spray 1 spray intranasal DAILY PRN (Reason: Allergic Symptoms) nabumetone [Relafen] 500 mg tablet 500 mg PO BID amlodipine 10 mg tablet 10 mg PO DAILY simvastatin 20 mg tablet 20 mg PO DAILY trazodone 100 mg tablet 100 mg PO BEDTIME fluticasone propion-salmeterol [Advair Diskus] 250-50 mcg/dose blister with device 1 inh inhalation BID 30 Days Qty: 60 2RF Print Language: Icelandic
[2024-08-29 07:11] LABS: Influenza A PCR NEGATIVE (Negative); Influenza B PCR NEGATIVE (Negative); Resp Syncy Virus RNA Qual PCR POSITIVE (Negative); SARS COV2 PCR INHOUSE NEGATIVE (Negative)
[2024-08-29 07:30] VITALS: BP 132/76; PULSE 80; RESP 19; TEMP 36.8; O2SAT 98
[2024-08-29 07:32] VITALS: BP 132/76; PULSE 80; RESP 19; TEMP 36.8; O2SAT 98
== END 2024-08-29 07:32 | disposition home or self-care (01) ==
PROVIDERS: Emergency Provider Emergency Medicine; PCP Internal Medicine
DX: R05.9 Cough, unspecified (principal); R06.02 Shortness of breath; J45.909 Unspecified asthma, uncomplicated; B97.4 Respiratory syncytial virus as the cause of diseases classified elsewhere; Z03.818 Encounter for observation for suspected exposure to other biological agents ruled out
CPT/HCPCS: 0241U; 71045; 99283; 99285

== ENCOUNTER → 2024-08-29 06:39 | Outpatient (BNV) | payer BC, SELFPAY | PROVIDERS: PCP Internal Medicine; Visit Provider Radiology Diagnostic Radiology | DX: R07.89 Other chest pain (principal); R05.9 Cough, unspecified | CPT/HCPCS: 71045 ==

== ENCOUNTER 2024-09-25 06:21 | Emergency (ER) | payer BC, SELFPAY ==
--- NOTE | ~2024-09-25 | XR_ITS ---
CLINICAL HISTORY: dyspnea cough 2 view chest x-ray Comparison: CR - XR CHEST 1V - 08/29/24 06:33 EST Findings: No consolidation or effusion. Heart size is normal. No acute fracture. IMPRESSION: 1. No acute cardiopulmonary abnormality. This document has been electronically signed by: Magda Rahman on 09/25/2024 07:26:55
[2024-09-25 06:31] VITALS: BP 139/78; PULSE 111; RESP 20; TEMP 37.6; O2SAT 95; BMI 33.3
[2024-09-25 07:18] LABS: Influenza A PCR POSITIVE (Negative); Influenza B PCR NEGATIVE (Negative); Resp Syncy Virus RNA Qual PCR NEGATIVE (Negative); SARS COV2 PCR INHOUSE NEGATIVE (Negative)
--- OUTSIDE RECORDS SUMMARY | 2024-09-25 08:05 | XMS_ITS | Encounter Summary ---
Author Organization [facility] [place] Address [address] [place] [address] Care Team Providers Care Athletic Equipment Custodian Name Role Phone Zaheer Munoz MD Primary Care Provider [phone] Reason for Visit * Reason Comments Cough Hypertension Encounter Details Date Type Department Care Team ([facility] st Contact Info) Description 09/22/2024 11:30 AM EST Office Visit Adult Medicine [facility] [address] [place] [address] Kristina Boo MD [address] [place] [address] RSV infection (Primary Dx); Fatigue, unspecified type; Essential hypertension, benign; Prediabetes Social History Tobacco Use Types Packs/Day Years Used Date Smoking Tobacco: Never Smokeless Tobacco: Never Tobacco Cessation:Counseling Given: Not Answered Alcohol Use Standard Drinks/Week Comments Yes 0 (1 standard drink = 0.6 oz pur e alcohol) Housing Instability Answer Date Recorde d Are you worried that in the next 2 months you may not have stable housing? No 07/30/2024 Food Access & Nutrition Answer Date Rec orded Do you have access to a vari ety of food including fruits and vegetables? Yes 07/30/2024 Access to Healthcare Answer Date Record ed Within the last 3 months, ho w many times did you visit the emergency department for your medical care? 0 07/30/2024 Health Literacy Answer Date Recorded How often do you need to hav e someone help you when you read instructions, pamphlets, or other written material from your doctor or pharmacy? Never 07/30/2024 Caregiver: How often do you need to have someone help you when you read instructions, pamphlets, or other written material from your doctor or pharmacy? Not on file 07/30/2024 Financial Risk Answer Date Recorded How hard is it for you to pa y for the very basics like food, housing, medical care, and air conditioning / heating? Not very hard 07/30/2024 Transportation Answer Date Recorded Has the lack of transportati on kept you from meetings, work, or from getting things needed for daily living? No Has the lack of transportati on kept you from medical appointments or from getting medications? No 07/30/2024 Social Isolation Answer Date Recorded How often do you feel lonely or isolated from th ose around you? Never 07/30/2024 Food Risk Answer Date Recorded Within the past 12 months we worried whether our food would run out before we got money to buy more. Never true 07/30/2024 Within the past 12 months th e food we bought just didn't last and we didn't have money to get more. Never true 07/30/2024 Dependent Care Answer Date Recorded Do you need help finding or paying for care for your loved ones. For example, child and family services worker or elderly care for an older adult? No 07/30/2024 Education Answer Date Recorded Do you think completing more education or training, like finishing a GED, going to college, or learning a trade, would be helpful for you? No 07/30/2024 Employment and Income Answer Date Recor ded During the last four weeks, have you been actively looking for work? No 07/30/2024 Living Situation Answer Date Recorded What is your living situation? 1 09/30/2023 Sex and Gender Information Value Date Recorded Sex Assigned at Not on file Gender Identity Not on file Sexual Orientation Not on file Job Start Date Occupation Industry Not on file Not on file Not on file documented as of this encounter Last Filed Vital Signs Vital Sign Reading Time Taken Comments Blood Pressure 118/72 09/22/2024 11:32 AM EST Pulse 104 09/22/2024 11:32 AM EST Temperature 36.2 ??C (97.2 ??F) 09/22/2024 11:[address] Respiratory Rate 16 09/22/2024 11:32 AM EST Oxygen Saturation 95% 09/22/2024 11:32 AM EST Inhaled Oxygen Concentration - - Weight 93 kg (205 lb) 09/22/2024 11:32 AM EST Height 165.1 cm (5' 5 ) 09/22/2024 11:32 AM EST Body Mass Index 34.11 09/22/2024 11:32 AM EST documented in this encounter Progress Notes * Maryam Ivey MA - 09/22/2024 11:30 AM EST cough * Kristina Boo MD - 09/22/2024 11:30 AM EST Chief Complaint: Chief Complaint Patient presents with Cough Hypertension IDENTIFIER: Joshua Christina is a 59 y.o. old male HPI He comes for evaluation with cough variant asthma, hypertension, prediabetes. He states that he hasbeen sick over the last month starting first with a cold, became sick again was seen in urgent careand found to have bilateral otitis and treated with antibiotics and prednisone. Subsequently he wasfeeling worse and was seen at the ER and found to have RSV. He has been feeling somewhat better butstill feels fatigued. He denies snoring, feels he is sleeping as much as he usually does but has been waking up tired. He denies any wheezing, still having some low-grade cough which is nonproductive, no fevers. ROS: General: As noted Respiratory: As noted Cardiovascular: No chest pain, palpitations, no orthopnea Past Medical History: Patient Active Problem List Diagnosis Date Noted Hypercholesteremia 07/02/2024 Seasonal allergies 07/02/2024 Stage 3a chronic kidney disease (CMS/HCC) 04/17/2024 Gastroesophageal reflux disease without esophagitis 05/24/2023 Insomnia 05/24/2023 COVID-19 08/21/2022 Obesity (BMI 30.0-34.9) 07/31/2022 Cough variant asthma 09/21/2020 Recurrent sinus infections 08/23/2020 Calcific tendinitis of left shoulder 03/06/2019 Shoulder impingement, left 03/06/2019 Prediabetes 09/01/2018 Osteoarthritis of both shoulders 07/25/2018 Essential hypertension, benign 10/23/2010 Surgical History: Past Surgical History: Procedure Laterality Date COLONOSCOPY 08/30/14 tics; repeat in ten yrs TONSILLECTOMY WISDOM TOOTH EXTRACTION Family History: Family History Problem Relation Name Age of Onset Diabetes Mother HTN, [place], kidney stones Diabetes Father Hypertension Maternal Grandmother Hypertension Paternal Grandmother Social History: Social History Tobacco Use Smoking status: Never Smokeless tobacco: Never Substance Use Topics Alcohol use: Yes Allergies: Patient has no known allergies. Medications: Outpatient Medications Marked as Taking for the 09/22/24 encounter (Office Visit) with Kristina Boo MD Medication Sig Dispense Refill atorvastatin (LIPITOR) 40 mg tablet TAKE 1 TABLET BY MOUTH EVERY DAY 90 tablet 1 cetirizine (ZyrTEC) 10 mg tablet Take 10 mg by mouth 1 (one) time each day FA/mv,Ca,iron,min/lycopene/lut (MULTIVITAL ORAL) Take by mouth. - Oral hydroCHLOROthiazide (HYDRODIURIL) 25 mg tablet Take 1 tablet (25 mg total) by mouth 1 (one) time each day. 90 tablet 1 melatonin 10 mg tablet Take by mouth. Take 1 Tablet by mouth at bedtime. - Oral montelukast (SINGULAIR) 10 mg tablet TAKE 1 TABLET BY MOUTH EVERYDAY AT BEDTIME 90 tablet 1 traZODone (DESYREL) 100 mg tablet TAKE 1 TABLET BY MOUTH EVERYDAY AT BEDTIME valsartan (DIOVAN) 160 mg tablet Take 1 tablet (160 mg total) by mouth 1 (one) time each day. 90 tablet 1 Medication Discontinued/Reordered: There are no discontinued medications. Vitals: Blood pressure 118/72, pulse 104, temperature 36.2 ??C (97.2 ??F), temperature source Temporal, resp. rate 16, height 1.651 m (65 ), weight 93 kg (205 lb), SpO2 95%. Body mass index is 34.11 kg/m??.Plan is deferred until next visit Physical Exam: General: patient is in no acute distress. Tympanic membranes clear on the right, no air fluid levels or erythema. Left auditory canal occluded with cerumen . pharynx clear without tonsillar enlargement or exudates. Neck supple without adenopathy, no thyromegaly. Lungs clear with auscultation. Heart: regular S1S2 without murmur, rub or gallop. Extremities without cyanosis, clubbing or edema. Labs: Lab Results Component Value Date HGBA1C 6.3 06/26/2024 Impression: 1. RSV infection 2. Fatigue, unspecified type 3. Essential hypertension, benign 4. Prediabetes Assessment and Plan: He appears to be having some lingering symptoms related to his RSV infection. Wheezing and asthma are controlled as is his blood pressure. Glycohemoglobin has been stable. He will use some Debrox andhave his left ear flushed. We did also discuss possible sleep testing for sleep apnea which he is declining at present. He will continue with conservative measures and return if not improving. documented in this encounter Plan of Treatment Upcoming Encounters Date Type Department Care Team (Late st Contact Info) Description 01/05/2025 10:00 AM EDT Appointment [facility] [address] [place] [address] Bhavik Pinto, DO [address] [address] 02/04/2025 8:30 AM EDT Office Visit Adult Medicine [address] [address] Eric Francois PA [address] [place] [id number] documented as of this encounter Visit Diagnoses Diagnosis RSV infection- Primary Fatigue, unspecified type Essential hypertension, benign Prediabetes Other abnormal glucose documented in this encounter Additional Health Concerns Assessment Noted Time PHQ-9 Depression Total Score: 0 07/30/20 24 1:58 PM EST documented as of this encounter Care Teams Athletic Equipment Custodian Relationship Specialty Start Date End Date Zaheer Munoz MD [address] [place] [id number] PCP - General Internal Medicine 06/20/21 documented as of this encounter
--- OUTSIDE RECORDS SUMMARY | 2024-09-25 08:05 | XMS_ITS | Encounter Summary ---
Author Organization [facility], Address [address] [place] [address] Phone Care Team Providers Care Galvanizer Zinc Name Role Phone Zaheer Munoz MD Primary Care Provider [phone] Encounter Details Date Type Department Care Team (Late st Contact Info) Description 04/16/2024 Documentation Only [facility], [address] [place] [address] Hansa Echeverria [address] [place] [address] Social History Tobacco Use Types Packs/Day Years Used Date Smoking Tobacco: Never Assessed Sex and Gender Information Value Date Recorded Sex Assigned at Not on file Legal Sex Male 10:14 AM EDT Gender Identity Not on file Sexual Orientation Not on file documented as of this encounter Plan of Treatment Not on file documented as of this encounter Visit Diagnoses Not on filedocumented in this encounter Care Teams Galvanizer Zinc Relationship Specialty Start Date End Date Zaheer Munoz MD PCP - General Internal Medicine 01/08/24 documented as of this encounter
--- OUTSIDE RECORDS SUMMARY | 2024-09-25 08:05 | XMS_ITS | Encounter Summary ---
Author Organization [facility], Address [address] [place] [address] Phone Care Team Providers Care Stone Sandblaster Name Role Phone Zaheer Munoz MD Primary Care Provider [phone] Encounter Details Date Type Department Care Team (Late st Contact Info) Description 01/08/2024 Documentation Only [facility], [address] [place] [address] [place] [address] [place] [phone] Social History Tobacco Use Types Packs/Day Years [...] on filedocumented in this encounter Care Teams Stone Sandblaster Relationship Specialty Start Date End Date Zaheer Munoz MD PCP - General Internal Medicine 01/08/24 documented as of this encounter
--- OUTSIDE RECORDS SUMMARY | 2024-09-25 08:05 | XMS_ITS | Encounter Summary ---
Author Organization [facility], Address [address] [place] [address] Phone Care Team Providers Care Frame Bender Name Role Phone Zaheer Munoz MD Primary Care Provider [phone] Encounter Details Date Type Department Care Team (Late st Contact Info) Description 04/17/2024 Documentation Only [facility], [address] [place] [address] Bassam Michelle, DO [address] [place] [phone] Social History Tobacco Use Types Packs/Day Years [...] on filedocumented in this encounter Care Teams Frame Bender Relationship Specialty Start Date End Date Zaheer Munoz MD PCP - General Internal Medicine 01/08/24 documented as of this encounter
--- OUTSIDE RECORDS SUMMARY | 2024-09-25 08:05 | XMS_ITS | Clinical Summary ---
Author Organization [facility] Address [address] [place] [address] Phone Care Team Providers Care Gas Brazer Name Role Phone Zaheer Munoz MD Primary Care Provider [phone] Allergies No known active allergies Medications Medication Sig Dispensed Refills Start Date End Date Status traZODone (DESYREL) 100 mg tablet TAKE 1 TABLET BY MOUTH EVERYDAY AT BEDTIME 06/15/2024 Active cetirizine (ZyrTEC) 10 mg tablet Take 10 mg by mouth 1 (one) time each day Active melatonin 10 mg tablet Take by mouth. Take 1 Tablet by mouth at bedtime. - Oral Active FA/mv,Ca,iron,min /lycopene/lut (MULTIVITAL ORAL) Take by mouth. - Oral Active valsartan (DIOVAN) 160 mg tablet Take 1 tablet (160 mg total) by mouth 1 (one) time each day. 90 tablet 1 08/06/2024 Active hydroCHLOROthiazi de (HYDRODIURIL) 25 mg tablet Take 1 tablet (25 mg total) by mouth 1 (one) time each day. 90 tablet 1 08/06/2024 Active montelukast (SINGULAIR) 10 mg tablet TAKE 1 TABLET BY MOUTH EVERYDAY AT BEDTIME 90 tablet 1 08/17/2024 Active bisacodyL (DULCOLAX) 5 mg EC tablet Take 2 tablets by mouth right before beginning bowel prep. See instructions provided by the office 2 tablet 08/17/2024 Active polyethylene glycol (Golytely) 236-22.74-6.74 -5.86 gram solution Take 4L by mouth once for one dose. May substitue any PEG. Starting at 6PM the night before your procedure drink 1 8oz glasses at your own pace until you complete half of the gallon. Finish 2nd half of the gallon 5 hours before your procedure. 4000 mL 08/17/2024 Active atorvastatin (LIPITOR) 40 mg tablet TAKE 1 TABLET BY MOUTH EVERY DAY 90 tablet 1 08/20/2024 Active pantoprazole (PROTONIX) 20 mg EC tablet Take 1 Tablet by mouth daily for 180 days. Daily before breakfast. 03/11/2024 09/07/2024 Active Problems Problem Noted Date Diagnosed Date Hypercholesteremia 07/02/2024 Seasonal allergies 07/02/2024 Overview (07/02/2024): Dr. Prince Stage 3a chronic kidney disease 04/17/2024 Gastroesophageal reflux disease without esophagi tis 05/24/2023 Insomnia 05/24/2023 COVID-19 08/21/2022 Obesity (BMI 30.0-34.9) 07/31/2022 Cough variant asthma 09/21/2020 Recurrent sinus infections 08/23/2020 Calcific tendinitis of left shoulder 03/06/2019 Shoulder impingement, left 03/06/2019 Prediabetes 09/01/2018 Osteoarthritis of both shoulders 07/25/2018 Essential hypertension, benign 10/23/2010 Encounters Date Type Department Care Team Description 09/22/2024 11:30 AM EST Office Visit [address] [phone] Kristina Boo MD RSV infection (Primary Dx); Fatigue, unspecified type; Essential hypertension, benign; Prediabetes 09/22/2024 Nurse Triage [address] [phone] Zaheer Munoz MD Fatigue; Dizziness 08/28/2024 Telephone Gastroenterology [facility] 175 [facility] 175 [facility] [address] [place] [address] Bhavik Pinto DO Special Procedure 08/18/2024 Telephone Adult [address] [phone] Zaheer Munoz MD Referral (Opthamology) 08/06/2024 9:45 AM EST Office Visit Adult Medicine [address] [address] Zaheer Munoz MD Essential hypertension, benign (Primary Dx); Hypercholesteremia; Prediabetes; Stage 3a chronic kidney disease (CMS/HCC); Arthralgia, unspecified joint; Weight gain; Obesity (BMI 30-39.9) from Last 3 Months Immunizations Name Administration Dates Next Due Influenza Quadravalent, MDCK , 0.5ml, preservative free (Flucelvax) 6mo and older 05/23/2023,05/29/2022,05/18/2021 Influenza Quadrivalent, 0.5m l, preservative free (Fluarix; FluLaval; Fluzone) ages 6mo and older (Afluria) 3yo and older 04/11/2020,05/16/2016 Influenza Quadrivalent, with preservative (Fluzone; Afluria) 6mo and older 05/20/2019 Influenza trivalent, MDCK, 0 .5mL, preservative free (Flucelvax) 6mo and older 04/28/2024 Influenza trivalent, with pr eservative (Fluzone; Afluria) 6mo and older 05/06/2017,05/06/2013,05/16/2011 Influenza, Unspecified 05/23/2023,05/19/2021 Mavrx SARS-CoV-2 COVID-19, mRNA, LNP-S, preservative free 05/26/2021 Pneumococcal polysaccharide 23 valent (Pneumovax 23) 2yo and older 07/31/2022 Tdap Tetanus diptheria acell ular pertussis (Boostrix; Adacel) 7yo and older 04/14/2021,02/14/2011 Zoster Live 09/25/2014 Zoster recombinant (Shingrix ) 19yo and older 01/26/2018,11/08/2017 Surgical History Surgery Date Site/Laterality Comments TONSILLECTOMY WISDOM TOOTH EXTRACTION COLONOSCOPY 08/30/14 tics; repeat in ten yrs Medical History Medical History Date Comments Hypercholesteremia Seasonal allergies Family History Medical History Relation Name Comments Diabetes Father Hypertension Maternal Grandmother Diabetes Mother HTN, [place], kidney stones Hypertension Paternal Grandmother Relation Name Status Comments Father Maternal Grandmother Mother Paternal Grandmother Social History Tobacco Use Types Packs/Day Years [...] your loved ones. For example, child and adolescent psychiatrist or elderly care for an older adult? [...] file Not on file Not on file Obstetrics History Last Filed Vital Signs Vital Sign Reading [...] Mass Index 34.11 09/22/2024 11:32 AM EST Plan of Treatment Upcoming Encounters Date Type Department Care Team (Late st Contact Info) Description 01/05/2025 10:[address] [facility] Endoscopy [address] [place] [phone] Bhavik Pinto DO [address] [address] 02/04/2025 8:30 AM EDT Office Visit Adult Medicine [address] [phone] Eric Francois PA [address] [place] [address] Health Maintenance Due Date Last Done Comments Colorectal Cancer Screening: Colonoscopy 07/28/2022 HIV Screening 07/28/2022 Pneumococcal Vaccine: Pediatrics (0 to 5 Years) and At-Risk Patients (6 to 64 Years) (2 of 2 - PCV) 07/31/2023 07/31/2022 RSV Immunization Patients 60+ Years Old (1 - Risk 60-74 years 1-dose series) 2024 Hypertension/CHF/CAD Annual BMP Blood Test 06/26/2025 06/26/2024, 05/29/2024, 05/29/2024 Depression Screening 07/30/2025 07/30/2024 Social Influencers of Health Screening 07/30/2025 07/30/2024 Cholesterol Screening (Lipid Panel) 06/26/2029 06/26/2024, 11/22/2023 DTaP,Tdap,and Td Vaccines (3 - Td or Tdap) 04/14/2031 04/14/2021, 02/14/2011 Zoster Vaccines Completed 01/26/2018, 10/18, 09/25/2014 Hepatitis C Screening Completed 08/29/2018 COVID-19 Vaccine Completed 04/28/2024, 12/2022, 06/05/2022, Additional history exists Influenza Vaccine Completed 04/28/2024, , 05/23/2023, Additional history exists HIB Vaccines Aged Out No longer eligi ble based on patient's age to complete this topic HPV Vaccines Aged Out No longer eligi ble based on patient's age to complete this topic Hepatitis A Vaccines Aged Out No long er eligible based on patient's age to complete this topic Hepatitis B Vaccines Aged Out No long er eligible based on patient's age to complete this topic IPV Vaccines Aged Out No longer eligi ble based on patient's age to complete this topic MMR Vaccines Aged Out No longer eligi ble based on patient's age to complete this topic Meningococcal ACWY Vaccine Aged Out N o longer eligible based on patient's age to complete this topic RSV Immunization Patients Under 20 months Aged Out No longer eligible based on patient's age to complete this topic Varicella Vaccines Aged Out No longer eligible based on patient's age to complete this topic Procedures Procedure Name Priority Date/Time Associated Diagnosis Comments THYROID STIMULATING HORMONE WITH REFLEX TO FREE T4 AND FREE T3 Routine 08/06/2024 10:38 AM EST Weight gain LIPID PANEL WITH REFLEX TO DIRECT LDL Routine 06/26/2024 8:40 AM EST Pre-diabetes Hypercholesterolemi a Hypopotassemia Encounter for long-term (current) use of medications COMPREHENSIVE METABOLIC PANEL Routine 06/26/2024 8:40 AM EST Pre-diabetes Hypercholesterolemi a Hypopotassemia Encounter for long-term (current) use of medications HEMOGLOBIN A1C Routine 06/26/2024 8:40 AM EST Pre-diabetes Hypercholesterolemi a Hypopotassemia Encounter for long-term (current) use of medications HEPATITIS C SCREENING Routine 08/29/2018 from Last 3 Months or Most Recently Relevant to Health Maintenance Results * Thyroid stimulating hormone with reflex to free t4 and free t3 (08/06/2024 10:38 AM EST) TSH 2.67 0.40 - 4.00 mcIU/mL LAB CHEMISTRY METHOD 08/06/2024 2:47 PM EST [facility] Blood Venous blood specimen / Unknown Venipuncture / Unknown 08/06/2024 10:38 AM EST 08/06/2024 10:38 AM EST Zaheer Munoz MD LAB BLOOD ORDERABLES [facility] [address] [place] [address], * (ABNORMAL) Lipid panel with reflex to direct LDL (06/26/2024 8:40 AM EST) Cholesterol 164 0 - 200 mg/dL LAB CHEMISTRY METHOD 06/26/2024 12:29 PM EST [facility] Triglycerides 238(H) 0 - 150 mg/dL LAB CHEMISTRY METHOD 06/26/2024 12:29 PM EST [facility] HDL 67 >=40 mg/dL LAB CHEMISTRY METHOD 06/26/2024 12:29 PM EST [facility] LDL Calculated 49 0 - 100 mg/dL LAB CHEMISTRY METHOD 06/26/2024 12:29 PM [facility] VLDL Cholesterol Blair 47.6 mg/dL LAB CHEMISTRY METHOD 06/26/2024 12:29 PM [facility] Non HDL Chol. (LDL+VLDL) 97 <145 mg/dL LAB CHEMISTRY METHOD 06/26/2024 12:29 PM [facility] Chol/HDL Ratio 2.4 0.0 - 4.4 LAB CHEMISTRY METHOD 06/26/2024 12:29 PM [facility] Blood Venous blood specimen / Unknown Venipuncture / Unknown 06/26/2024 8:40 AM EST 06/26/2024 8:40 AM EST Zaheer Munoz MD LAB BLOOD ORDERABLES Performing Organization Address [facility]/ZIP Co de Phone Number [facility] [address] [place] [address], [place] [phone] * Hemoglobin A1c (06/26/2024 8:40 AM EST) Pathologist [facility] Hemoglobin A1C 6.3 <6.5 % LAB CHEMISTRY METHOD 06/26/2024 1:41 PM [facility] Mean Bld Glu Estim. 134 mg/dL LAB CHEMISTRY METHOD 06/26/2024 1:41 PM [facility] Blood Venous blood specimen / Unknown Venipuncture / Unknown 06/26/2024 8:40 AM EST 06/26/2024 8:40 AM EST Zaheer Munoz MD LAB BLOOD ORDERABLES Performing Organization Address City/[facility]/ZIP Co de Phone Number [facility] [address] [place] [address], [place] [phone] * (ABNORMAL) Comprehensive metabolic panel (06/26/2024 8:40 AM EST) Sodium 138 133 - 145 mmol/L LAB CHEMISTRY METHOD 06/26/2024 12:28 PM [facility] Potassium 4.0 3.5 - 5.5 mmol/L LAB CHEMISTRY METHOD 06/26/2024 12:28 PM [facility] Chloride 99 96 - 110 mmol/L LAB CHEMISTRY METHOD 06/26/2024 12:28 PM [facility] CO2 31 21 - 32 mmol/L LAB CHEMISTRY METHOD 06/26/2024 12:28 PM [facility] Anion Gap 8 3 - 11 LAB CHEMISTRY METHOD 06/26/2024 12:28 PM [facility] Glucose 107(H) 70 - 100 mg/dL LAB CHEMISTRY METHOD 06/26/2024 12:28 PM [facility] BUN 18 5 - 25 mg/dL LAB CHEMISTRY METHOD 06/26/2024 12:28 PM [facility] Creatinine 1.21 0.70 - 1.30 mg/dL LAB CHEMISTRY METHOD 06/26/2024 12:28 PM [facility] eGFR 69 >=60 mL/min/1. 73m2 LAB CHEMISTRY METHOD 06/26/2024 12:28 PM [facility] Comment:Calculation based on the??Chronic Kidney Disease Epidemiology Collaboration (CKD-EPI) equation refit??without adjustment for race. BUN/Creatinine Ratio 14.9 LAB CHEMISTRY METHOD 06/26/2024 12:28 PM [facility] Calcium 10.2 8.5 - 10.5 mg/dL LAB CHEMISTRY METHOD 06/26/2024 12:28 PM [facility] AST (SGOT) 50(H) 10 - 42 unit/L LAB CHEMISTRY METHOD 06/26/2024 12:28 PM [facility] ALT (SGPT) 96(H) 10 - 60 unit/L LAB CHEMISTRY METHOD 06/26/2024 12:28 PM [facility] Alkaline Phosphatase 66 42 - 121 unit/L LAB CHEMISTRY METHOD 06/26/2024 12:28 PM EST [facility] Total Protein 7.6 6.0 - 8.0 g/dL LAB CHEMISTRY METHOD 06/26/2024 12:28 PM EST [facility] Albumin 4.6 3.2 - 5.0 g/dL LAB CHEMISTRY METHOD 06/26/2024 12:28 PM EST [facility] Total Bilirubin 0.7 0.0 - 1.4 mg/dL LAB CHEMISTRY METHOD 06/26/2024 12:28 PM EST [facility] Blood Venous blood specimen / Unknown Venipuncture / Unknown 06/26/2024 8:40 AM EST 06/26/2024 8:40 AM EST Zaheer Munoz MD LAB BLOOD ORDERABLES [facility] [address] [place] [address], * Hepatitis C Screening (08/29/2018) Hepatitis C Screening abstracted Historical Provider MD HARRY Moreno from Last 3 Months or Most Recently Relevant to Health Maintenance Care Teams Gas Brazer Relationship Specialty Start Date End Date Zaheer Munoz MD [address] [place] [id number] PCP - General Internal Medicine 06/20/21
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
--- OUTSIDE RECORDS SUMMARY | 2024-09-25 08:05 | XMS_ITS | Encounter Summary ---
Author Organization [facility] Address [address] [place] [address] Care Team Providers Care Upper Leather Cutter Name Role Phone Zaheer Munoz MD Primary Care Provider [phone] Reason for Visit * Reason Onset Date Comments Special Procedure 08/28/2024 Encounter Details Date Type Department Care Team ([facility] st Contact Info) Description 08/28/2024 Telephone Gastroenterology - [place] [address] [place] [phone] Bhavik Pinto DO [address] [place] [address] Special Procedure Social History Tobacco Use Types Packs/Day Years [...] Record ed Within the last 3 months, becky portillo many times did you visit the emergency [...] care for your loved ones. For example, early childhood education instructor or elderly care for an older adult? [...] as of this encounter Progress Notes * Carmina Mcneal - 08/28/2024 11:02 AM EST Scheduled. * Trista Andrade - 08/28/2024 8:52 AM EST Patient calling to reschedule colonoscopy for Saturday due to double ear infection documented in this encounter Plan of Treatment Upcoming Encounters Date Type Department Care Team (Late st Contact Info) Description 01/05/2025 10:00 AM EDT Appointment [facility] Endoscopy [address] [place] [address] Bhavik Pinto DO 175 [facility] [address] [place] [address] 02/04/2025 8:30 AM EDT Office Visit Adult Medicine [facility] [address] [place] [phone] Eric Francois PA [address] [place] [address] documented as of this encounter Visit Diagnoses Not on filedocumented in this encounter Additional Health Concerns Assessment Noted Time PHQ-9 Depression Total Score: 0 07/30/20 24 1:58 PM EST documented as of this encounter Care Teams Upper Leather Cutter Relationship Specialty Start Date End Date Zaheer Munoz MD [address] [place] [address] PCP - General Internal Medicine 06/20/21 documented as of this encounter
--- OUTSIDE RECORDS SUMMARY | 2024-09-25 08:05 | XMS_ITS | Encounter Summary ---
Author Organization [facility] Address [address] [place] [address] Care Team Providers Care Cardiology Manager Name Role Phone Zaheer Munoz MD Primary Care Provider [phone] Reason for Referral * Consultation (Routine) - Pending Review Specialty Diagnoses / Procedures Referred By Chip jaime Referred To Contact Ophthalmology Diagnoses Encounter for routine eye and vision examination Zaheer Munoz MD [address] [place] [address] Kaiser Oconnor MD [address] [place] [id number] Referral ID Status Reason Start Date Expiration Date Visits Requested Visits Authorized [id number] Pending Review Specialty Services Required 08/18/2025 1 1 Reason for Visit * Reason Onset Date Comments Referral 08/18/2024 Opthamology Encounter Details Date Type Department Care Team ([facility] st Contact Info) Description 08/18/2024 Telephone Adult Medicine [address] [phone] Zaheer Munoz MD [address] [place] [address] Referral (Opthamology) Social History Tobacco Use Types Packs/Day Years [...] for your loved ones. For example, child care teacher or elderly care for an older adult? [...] as of this encounter Progress Notes * Zaheer Munoz MD - 08/18/2024 2:09 PM EST Referral placed * April Moore - 08/18/2024 1:41 PM EST Maddie from Dr. Le's office calling requesting an insurance auth. Routine Eye Exam 6 visits 08/20/24 Please pend the order for the provider to sign so we can process the insurance authorization. Thank you, April Referrals Department documented in this encounter Plan of Treatment Upcoming Encounters Date Type Department Care Team (Late st Contact Info) Description 01/05/2025 10:00 AM EDT Appointment [facility] Endoscopy [address] [place] [address] Bhavik Pinto DO 175 [facility] [address] [place] [address] 02/04/2025 8:30 AM EDT Office Visit Adult Medicine [address] [phone] Eric Francois PA [address] [place] [address] Scheduled Referrals Name Type Priority Associated Diagnoses Order Schedule Ambulatory referral to Ophthalmology Outpatient Referral Routine Encounter for routine eye and vision examination Expected: 08/20/2024, Expires: 08/18/2025 documented as of this encounter Visit Diagnoses Diagnosis Eye exam, routine- Primary Encounter for routine eye and vision examination documented in this encounter Additional Health Concerns Assessment Noted Time PHQ-9 Depression Total Score: 0 07/30/20 24 1:58 PM EST documented as of this encounter Care Teams Cardiology Manager Relationship Specialty Start Date End Date Zaheer Munoz MD [address] [place] [id number] PCP - General Internal Medicine 06/20/21 documented as of this encounter
--- OUTSIDE RECORDS SUMMARY | 2024-09-25 08:05 | XMS_ITS | Clinical Summary ---
Author Organization [facility], Address [address] [place] [phone] Phone Care Team Providers Care Railway Track Plant Operator Name Role Phone Zaheer Munoz MD Primary Care Provider Allergies No known active allergies Medications hydroCHLOROthia zide 25 MG tablet Take 25 mg by mouth 1 (one) time each day in the evening Active montelukast (SINGULAIR) 10 MG tablet Take 10 mg by mouth 1 (one) time each day in the evening 4 Active traZODone (DESYREL) 100 MG tablet 4 Active valsartan (DIOVAN) 160 MG tablet Take 160 mg by mouth 1 (one) time each day in the evening 4 Active atorvastatin (LIPITOR) 40 MG tablet Take 40 mg by mouth 1 (one) time each day Active pantoprazole (PROTONIX) 20 MG EC tablet Take 20 mg by mouth 1 (one) time each day before breakfast Do not crush, chew, or split. Active simvastatin (ZOCOR) 20 MG tablet Take 20 mg by mouth every night Active cetirizine (ZyrTEC) 10 MG tablet Take 10 mg by mouth 1 (one) time each day Active Melatonin 10 MG tablet Take by mouth Active Multiple Vitamin (multivitamin) tablet Take 1 tablet by mouth 1 (one) time each day Active Active Problems Problem Noted Date Diagnosed Date Essential hypertension 04/17/2024 Stage 3a chronic kidney disease 04/17/2024 Social History Tobacco Use Types Packs/Day Years Used Date Smoking Tobacco: Never Assessed Sex and Gender Information Value Date Recorded Sex Assigned at Not on file Legal Sex Male 10:14 AM EDT Gender Identity Not on file Sexual Orientation Not on file Plan of Treatment Health Maintenance Due Date Last Done Comments Colorectal Cancer Screening: Annual FOBT 2013 Colorectal Cancer Screening: Colonoscopy 2013 Colorectal Cancer Screening: Sigmoidoscopy 2013 Pneumococcal Vaccine: Pediat rics (0 to 5 Years) and At-Risk Patients (6 to 64 Years) (2 of 2 - PCV) 07/31/2023 07/31/2022 Influenza Vaccine (#1) 2024 Hepatitis B Vaccine Aged Out No longe r eligible based on patient's age to complete this topic Insurance [facility] Care Teams Railway Track Plant Operator Relationship Specialty Start Date End Date Zaheer Munoz MD PCP - General Internal Medicine 01/08/24
[2024-09-25 08:39] VITALS: BP 151/80; PULSE 109; RESP 18; TEMP 39.1; O2SAT 93
[2024-09-25] MEDS: Acetaminophen 325 MG TABLET 975 MG PO (08:44)
--- NOTE | 2024-09-25 08:48 | ED_ITS ---
HPI - URI/Sore Throat General Chief Complaint: Upper Respiratory Symptoms Stated Complaint: resp symptoms Time Seen by Provider: 09/25/24 08:45 Source: patient and family ( , Jessica) Mode of arrival: ambulatory Limitations: no limitations History of Present Illness ED Provider: Dr. Don Young HPI Narrative: 59-year-old male with a history of hypertension, hyperlipidemia asthma/reactive airway disease who presents emergency department for evaluation of cough shortness of breath and fatigue. Patient states that he was diagnosed with RSV bronchitis 08/15/2024 and states that he was not completely recovered from this viral infection. He was states complains of nonproductive cough, feeling short of breath and has no energy with significant fatigue over the past month which he attributes to the RSV infection. Patient states that over the last 3 days, his cough has become worse but he is still nonproductive. His shortness of breath and this fatigue has also gotten worse. He now has fever, rhinorrhea, sore throat and chest tightness. He denied nausea, vomiting, diarrhea, frequency, urgency. He states that his body aches and he has increased fatigue which is worse than it has been over the last month. The patient did take a home Influenza test yesterday which was negative. The patient states that whenever he gets arespiratoryinfection he has a flare- up of his asthma. Related Data Home Medications ?Medication ?Instructions ?Recorded ?Confirmed amlodipine 10 mg tablet 10 mg PO DAILY 09/13/20 10/16/21 nabumetone 500 mg tablet (Relafen) 500 mg PO BID 09/13/20 10/16/21 simvastatin 20 mg tablet 20 mg PO DAILY 09/13/20 10/16/21 trazodone 100 mg tablet 100 mg PO BEDTIME 09/13/20 10/16/21 pantoprazole 20 mg tablet,delayed 40 mg PO DAILY 10/11/20 10/16/21 release triamcinolone acetonide 55 mcg 1 spray intranasal DAILY PRN 10/11/20 10/16/21 nasal spray aerosol Allergic Symptoms Previous Rx's ?Medication ?Instructions ?Recorded fluticasone 250 mcg-salmeterol 50 1 inh inhalation BID COUGH/ ASTHMA 09/04/21 mcg/dose blistr powdr for 30 days #60 ea inhalation (Advair Diskus) albuterol sulfate 90 mcg/actuation 2 puff inhalation Q6H PRN 09/25/21 aerosol inhaler (ProAir HFA) Shortness Of Breath Or Wheezing 30 days #8.5 grams benzonatate 100 mg capsule 100 mg PO BID PRN cough #14 caps 08/21/22 codeine 10 mg-guaifenesin 100 mg/5 5 ml PO Q6H PRN cough #118 mL 08/21/22 mL oral liquid montelukast 10 mg tablet 10 mg PO BEDTIME Allergic Rhinitis 09/18/22 90 days #90 tabs benzonatate 100 mg capsule 100 mg PO TID PRN cough #20 caps 08/29/24 prednisone 20 mg tablet See Rx Instructions .Route 08/29/24 .COMPLEX #18 tabs oseltamivir 75 mg capsule (Tamiflu) 75 mg PO Q12H 5 days #10 caps 09/25/24 prednisone 20 mg tablet 60 mg (3 x 20 mg) PO DAILY 5 days 09/25/24 #15 tabs Allergies Allergy/AdvReac Type Severity Reaction Status Date / Time Seasonal Allergies Allergy Sneezing, Verified 09/25/24 06:33 coughing Review of Systems 2 Review of Systems: Yes all other systems are reviewed and are negative [facility] Past Medical History [facility] Narrative: social history: He was in his is here in the emergency department with him. Denies tobacco use. He drinks 1-2 you alcoholic beverages per day. Medical History Allergic rhinosinusitis Arthritis Asthma Cough due to bronchospasm Elevated cholesterol Environmental allergies GERD (gastroesophageal reflux disease) HTN (hypertension) Seasonal allergies Surgical History Hx of colonoscopy Social History Social History Are you a primary resident care director to a significant other at home: No Do you presently have visiting nurse or other home services: No Alcohol intake: current Alcohol intake frequency: holidays/special occasions only Patient Tobacco Use Status: Never used Tobacco Advance Directives: Yes Advance Directives on File: Yes Advance Directives Date on File: 06/14/21 Do you have a plan to hurt others: No Plan Current occupational status: retired Current occupation: lt handed Physical Exam 2 Vital Signs: Vital Signs: Last Vital Signs Temp 97.6 F 09/25/24 10:43 Pulse 89 09/25/24 10:43 Resp 18 09/25/24 10:43 BP 148/75 H 09/25/24 10:43 Pulse Ox 95 09/25/24 10:43 O2 Del Method Room Air 09/25/24 10:43 BMI result Body Mass Index 33.3 Vital signs revealed slight elevation in his blood pressure but otherwise were unremarkable. Exam: General: Awake, alert in no distress Head: Normocephalic, atraumatic EENT: PERRL, Lids normal, sclera normal, conjunctiva normal, nose normal , ears normal, throat without erythema or exudates Neck: Supple, no adenopathy Lung: breath sounds symmetric,defuse wheezing with no rales or rhonchi Chest: symmetric movement, nontender Heart: regular rate and rhythm, normal S1, S2 no murmurs or rubs Abdomen: soft, non-tender, nondistended, normal bowel sounds Back: no vertebral tenderness, no CVAT Extremities: no deformities, moves all extremities symmetrically Neuro: Awake, alert, oriented, normal speech, moves all extremities symmetrically Psych: Pleasant, cooperative Medications Administered Discontinued Medications Generic Name Dose Route Start Last Admin Trade Name Freq PRN Reason Stop Dose Admin Acetaminophen 975 mg 09/25/24 08:38 09/25/24 08:44 Acetaminophen 325 Mg Tablet PO 09/25/24 08:39 975 mg ONCE ONE Administration Oseltamivir Phosphate 75 mg 09/25/24 09:26 09/25/24 09:48 Oseltamivir Phosphate 75 Mg Capsule PO 09/25/24 09:27 75 mg ONCE ONE Administration Prednisone 60 mg 09/25/24 09:26 09/25/24 09:48 Prednisone 20 Mg Tablet PO 09/25/24 09:27 60 mg ONCE ONE Administration Medical Decision Making Medical Decision Making MDM Narrative: 59-year-old male with a history of hypertension, hyperlipidemia asthma/reactive airway disease who states he has not felt well since being diagnosed with RSV bronchitis on 08/15/2024. His symptoms have gotten worse over the past 3 days and these include fever, worsening of his nonproductive cough, sore throat, rhinorrhea, chest tightness, shortness of breath, dyspnea on exertion , diffuse body aches and increased fatigue. Patient was vital signs revealed an elevated blood pressure otherwise unremarkable. Physical exam revealed diffuse wheezing in his lung exam otherwise unremarkable. Differential diagnosis: Includes but is not limited to bacterial pneumonia, viral pneumonia, viral URI, asthma exacerbation, anemia, electrolyte abnormalities, COVID-19, influenza, RSV Course: my independent interpretation patient's laboratory evaluation is as follows: CBC was normal. CMP revealed an elevated AST and ALT at 52 and 84- patient states he has had similar elevations in the past and attributes it is you his anticholesterol medication. COVID and RSV were negative. Influenza test was positive for influenza A. Chest x-ray revealed no acute infiltrates. The patient did develop a fever of 102.5 degrees F while here in the emergency department and was treated with acetaminophen 975 mg orally with improvement of his temperature.. He was also given prednisone 60 mg orally in Tamiflu 75 mg orally. The patient's symptoms, exam and laboratory findings are consistent with acute influenza A. I did discuss his elevated AST and ALT with him. I advised that he cut down on his alcohol use and stopping completely. He was advised to take Tylenol 1000 mg every 6 hours as needed for pain or fever. He was prescribed prednisone 60 mg once a day for 5 days and Tamiflu 75 mg every 12 hours for 5 days. He was given printed and verbal instructions and discharged home. Admission/Observation Consideration of admission/observation: Escalation of care including admission/observation considered (Yes) Lab Data MDM Lab Attestation statement: I reviewed the patient's lab results. 09/25/24 09:01 09/25/24 09:01 Labs: Lab Results 09/25/24 09/25/24 Range/Units 06:36 09:01 WBC 7.4 (4.8-10.8) X10*3/uL RBC 4.58 L (4.60-5.80) X10*6/uL Hgb 14.1 (14.0-18.0) g/dl Hct 40.1 L (42.0-52.0) % MCV 87.6 (80.0-98.0) fL MCH 30.8 (27.0-33.0) pg MCHC 35.2 (31.0-36.0) g/dl RDW 13.2 (11.0-16.0) % Plt Count 189 (160-400) X10*3/uL MPV 9.0 L (9.4-12.4) fL Immature Gran % (Auto) 0.4 (0.0-0.4) % Neut % (Auto) 74.5 H (45-73) % Lymph % (Auto) 10.1 L (20-40) % [place] % (Auto) 11.4 H (2-11) % Eos % (Auto) 2.9 (0-4) % Baso % (Auto) 0.7 (0-2) % Lymph # (Auto) 0.7 L (1.2-4.9) X10*3/uL Marathon # (Auto) 0.8 (0.1-1.2) X10*3/uL Eos # (Auto) 0.2 (0.0-0.4) X10*3/uL Baso # (Auto) 0.1 (0.0-0.2) X10*3/uL Abs Immat Gran (auto) 0.03 (0.00-0.03) X10*3/uL Absolute Neuts (auto) 5.5 (2.0-8.3) x10*3/uL Absolute Nucleated RBC 0.000 (0.0-0.012) X10*3/uL Nucleated RBC % (auto) 0.0 (0.0-0.2) /100WBC Sodium 136 (135-145) mmol/L Potassium 3.4 (3.3-5.1) mmol/L Chloride 97 (96-108) mmol/L Carbon Dioxide 29 (22-29) mmol/L Anion Gap 13 (12-20) BUN 16 (9-16) mg/dL Creatinine 1.00 (0.5-1.4) mg/dL Estim Creat Clear Calc 81.3 Estimated GFR > 60 Random Glucose 104 (60-115) mg/dL Calcium 9.2 (8.4-10.2) mg/dL Total Bilirubin 0.6 (0.0-1.0) mg/dL AST 52 H (5-37) U/L ALT 84 H (0-40) U/L Alkaline Phosphatase 56 (39-117) U/L Total Protein 7.5 (6.5-8.0) g/dL Albumin 4.3 (3.5-5.0) g/dL Influenza Type A (PCR) POSITIVE A (Negative) Influenza Type B (PCR) NEGATIVE (Negative) RSV RNA Qual (PCR) NEGATIVE (Negative) SARS-CoV-2 RNA (RT-PCR) NEGATIVE (Negative) Independent Interpretation I performed an independent interpretation of an: Plain X-Ray Interpretation: My independent interpretation patient's two view chest x-ray is as follows: No acute disease Radiology Impression Discussion of test interpretation with radiology: I have reviewed the radiologist's reading. Radiologist Impression: 2 view chest x-ray Comparison: CR - XR CHEST 1V - 08/29/24 06:33 EST Findings: No consolidation or effusion. Heart size is normal. No acute fracture. IMPRESSION: 1. No acute cardiopulmonary abnormality. This document has been electronically signed by: Magda Rahman on 09/25/2024 07:26:55 Independent Historian Clinical information obtained from an independent historian. History obtained from or confirmed by: Spouse Prescription Management I considered prescription management with: Antiviral ( Tamiflu) and Other anti-inflammatory steroid: Prednisone Chronic Conditions Patient?s care impacted by: Hypertension and Other ( asthma) Discharge Plan Discharge Clinical Impression: Influenza A, Acute bronchospasm, Exacerbation of reactive airway disease Patient Disposition: Home, Self-Care Instructions: Influenza (ED) Additional Instructions: Your COVID-19 and RSV tests were negative. Your influenza test was positive for influenza A. This explains your symptoms. Your chest x-ray revealed no evidence for pneumonia which is reassuring. Your complete blood count was normal. Your comprehensive metabolic panel was unremarkable except for an elevation in 2 of your liver enzymes, AST and ALT. Your AST was 52 with a normal range of 5 to 37 and your ALT was 84 with a normal range of 0 to 40. These elevations are very mild but may be related to your alcohol use. You should consider cutting down or stopping drinking alcohol. Take Tamiflu 75 mg pills, 1 pill every 12 hours for 5 days. This is a medicine that should help shorten with a number of days that you sick with the flu and may also help prevent a viral pneumonia caused by the flu. Take prednisone 20 mg pills, 3 pills once a day for 5 days. While you ?are taking prednisone, do not take any NSAIDs (Motrin, Advil, ibuprofen, Aleve, naproxen). Take Tylenol (acetaminophen) 500 mg pills, 2 pills every 6 hours as needed for pain or fever. Follow-up with your doctor in 2 days. Please return to the emergency department if your symptoms get worse or if you develop any symptoms that are concerning to you. Prescriptions: New oseltamivir [Tamiflu] 75 mg capsule 75 mg PO Q12H 5 Days Qty: 10 0RF prednisone 20 mg tablet 60 mg PO DAILY 5 Days Qty: 15 0RF No Action albuterol sulfate [ProAir HFA] 90 mcg/actuation HFA aerosol inhaler 2 puff inhalation Q6H PRN (Reason: Shortness Of Breath Or Wheezing) 30 Days Qty: 8.5 3RF montelukast 10 mg tablet 10 mg PO BEDTIME 90 Days Qty: 90 3RF benzonatate 100 mg capsule 100 mg PO BID PRN (Reason: cough) Qty: 14 0RF codeine-guaifenesin 10-100 mg/5 mL liquid 5 ml PO Q6H PRN (Reason: cough) Qty: 118 0RF prednisone 20 mg tablet See Rx Instructions .ROUTE .COMPLEX Qty: 18 0RF Rx Instructions: 60 mg (3 tabs) x3 days, then 40 mg (2 tabs) x3 days, then 20 mg (1 tab) x3 days benzonatate 100 mg capsule 100 mg PO TID PRN (Reason: cough) Qty: 20 0RF pantoprazole 20 mg tablet,delayed release (DR/EC) 40 mg PO DAILY triamcinolone acetonide 55 mcg aerosol,spray 1 spray intranasal DAILY PRN (Reason: Allergic Symptoms) nabumetone [Relafen] 500 mg tablet 500 mg PO BID amlodipine 10 mg tablet 10 mg PO DAILY simvastatin 20 mg tablet 20 mg PO DAILY trazodone 100 mg tablet 100 mg PO BEDTIME fluticasone propion-salmeterol [Advair Diskus] 250-50 mcg/dose blister with device 1 inh inhalation BID 30 Days Qty: 60 2RF Interventions: ED Discharge Assessment Last Done: 09/25/24 10:43 Discharge Date/Time: 09/25/24 10:44 Print Language: Syriac
[2024-09-25 09:06] LABS: MANUAL DIFF FLAG NO
[2024-09-25 09:09] LABS: Basophils Absolute Auto 0.1 X10*3/uL (0.0-0.2); Basophils Percent Auto 0.7 % (0-2); Eosinophils Absolute Auto 0.2 X10*3/uL (0.0-0.4); Eosinophils Percent Auto 2.9 % (0-4); Hematocrit 40.1 % (42.0-52.0); Hemoglobin 14.1 g/dl (14.0-18.0); Imm Gran Abs Auto 0.03 X10*3/uL (0.00-0.03); Imm Gran Pct Auto 0.4 % (0.0-0.4); Lymphocytes Absolute Auto 0.7 X10*3/uL (1.2-4.9); Lymphocytes Percent Auto 10.1 % (20-40); Mean Corpuscular HGB Conc 35.2 g/dl (31.0-36.0); Mean Corpuscular Hemoglobin 30.8 pg (27.0-33.0); Mean Corpuscular Volume 87.6 fL (80.0-98.0); Monocytes Absolute Auto 0.8 X10*3/uL (0.1-1.2); Monocytes Percent Auto 11.4 % (2-11); Neutrophils Absolute Auto 5.5 x10*3/uL (2.0-8.3); Neutrophils Percent Auto 74.5 % (45-73); Platelet Count 189 X10*3/uL (160-400); Red Blood Count 4.58 X10*6/uL (4.60-5.80); Red Cell Distribution Width 13.2 % (11.0-16.0); White Blood Count 7.4 X10*3/uL (4.8-10.8)
[2024-09-25] MEDS: Oseltamivir Phosphate 75 MG CAPSULE PO (09:48)
[2024-09-25] MEDS: predniSONE 20 MG TABLET 60 MG PO (09:48)
[2024-09-25 10:11] LABS: Alanine Aminotransferase 84 U/L (0-40); Albumin Level 4.3 g/dL (3.5-5.0); Alkaline Phosphatase 56 U/L (39-117); Anion Gap 13 (12-20); Aspartate Amino Transferase 52 U/L (5-37); Bilirubin Total 0.6 mg/dL (0.0-1.0); Blood Urea Nitrogen 16 mg/dL (9-16); Calcium 9.2 mg/dL (8.4-10.2); Carbon Dioxide 29 mmol/L (22-29); Chloride 97 mmol/L (96-108); Creatinine Clr Calc Pharmacy 81.3; Estimated Glomerular Filt Rate > 60; Glucose Random 104 mg/dL (60-115); Potassium 3.4 mmol/L (3.3-5.1); Sodium 136 mmol/L (135-145); Total Protein 7.5 g/dL (6.5-8.0)
[2024-09-25 10:43] VITALS: BP 148/75; PULSE 89; RESP 18; TEMP 36.4; O2SAT 95
== END 2024-09-25 10:44 | disposition home or self-care (01) ==
PROVIDERS: Emergency Provider Emergency Medicine Emergency Medical Services; PCP Internal Medicine
DX: J10.1 Influenza due to other identified influenza virus with other respiratory manifestations (principal); J98.01 Acute bronchospasm; R05.9 Cough, unspecified; R06.02 Shortness of breath; R53.83 Other fatigue; Z03.818 Encounter for observation for suspected exposure to other biological agents ruled out; Z79.899 Other long term (current) drug therapy
CPT/HCPCS: 0241U; 36415; 71046; 80053; 85025; 99283; 99284

== ENCOUNTER → 2024-09-25 06:30 | Outpatient (BNV) | payer BC, SELFPAY | PROVIDERS: PCP Internal Medicine; Visit Provider Radiology Vascular & Interventional Radiology | DX: R06.09 Other forms of dyspnea (principal); R05.9 Cough, unspecified | CPT/HCPCS: 71046 ==

== ENCOUNTER 2024-10-27 15:22 | Outpatient (AMB) | payer BC, SELFPAY ==
[2024-10-27 15:39] VITALS: BP 140/78; PULSE 102; O2SAT 93; BMI 34.5
--- NOTE | 2024-10-27 15:39 | MHC.OFFVIS ---
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: No Allergies Seasonal Allergies Allergy (Verified 10/27/24 16:24) Sneezing, coughing Medication List - Last Reconciled 10/27/24 by Zaida Connor MD albuterol sulfate 90 mcg/actuation (ProAir HFA) 2 puffs inhalation Q6H PRN 30 days amlodipine 10 mg PO DAILY atorvastatin 40 mg PO DAILY benzonatate 100 mg PO TID PRN bisacodyl (Laxative (bisacodyl)) 10 mg PO fluticasone propion-salmeterol 250-50 mcg/dose (Advair Diskus) 1 inh inhalation BID 30 days hydrochlorothiazide 25 mg PO DAILY montelukast 10 mg PO BEDTIME 90 days pantoprazole 40 mg PO DAILY peg 3350-electrolytes 236-22.74-6.74 -5.86 gram (GaviLyte-G) mL PO trazodone 100 mg PO BEDTIME triamcinolone acetonide 1 spray intranasal DAILY PRN valsartan 160 mg PO DAILY Do you need a note to return to daycare/school/sports/work: No HPI HPI Cough: Details: This 59 years old gentleman comes for pulmonary eval and treatment because he has severe cough since about 2 months ago. In later part of July 2024 he was visiting his daughter and grandson in [place]. He contracted an upper respiratory infection from there. When he came back he started having hacking type of cough, . Which would not go away He ended up going to the emergency room over here and was checked for RSV infection which was positive. Prescribed symptomatic treatment, and course of prednisone. He was seen in the urgent care clinic for the same symptoms and then prescribed another course of prednisone with [id number] cough meds. With the prednisone the cough became just too little but milder but did not go away. The cough was mostly dry. It is not letting so for. He recalls that for the past many years he has gone through the same cycle after getting upper respiratory infections. He was seen by me back in 2023 for similar problem, and treated with mild does of Advair plus albuterol p.r.n.. That helped to resolve his cough. He is nonsmoker. PENDING SALE TO [facility] Medical History Seasonal allergies Environmental allergies GERD (gastroesophageal reflux disease) Elevated cholesterol HTN (hypertension) Arthritis Asthma Cough due to bronchospasm Allergic rhinosinusitis Surgical History Hx of colonoscopy Social History Are you a primary health care / medical job titles to a significant other at home: No Do you presently have visiting nurse or other home services: No Alcohol intake: current Alcohol intake frequency: holidays/special occasions only Patient Tobacco Use Status: Never used Tobacco Advance Directives Date on File: 06/14/21 Current occupational status: retired Current occupation: lt handed Review of Systems Const All systems reviewed & are unremarkable except as noted in HPI and below Eyes Reports no additional complaints ENT Reports nasal congestion (DAILY, ESPECIALLY AT NIGHT) and Reports nasal discharge (FREQUENT MUCOPURULENT POSTNASAL DISCHARGE.) Card Reports no additional complaints GI Reports no additional complaints Reports no additional complaints Musc Reports no additional complaints Skin/Breast Reports rash ( DESCRIBED IN HPI) Neuro Reports no additional complaints Psych Reports no additional complaints Physical Exam Vital Signs: Last Vital Signs Pulse 102 H 10/27/24 15:39 BP 140/78 H 10/27/24 15:39 Pulse Ox 93 10/27/24 15:39 Oxygen Delivery Method Room Air 10/27/24 15:39 BMI result Body Mass Index 34.5 Const General: healthy appearing, comfortable, no acute distress, alert and awake Orientation/consciousness: patient oriented x3 HEENT Head: Yes normal to inspection General nose exam: No nasal polyps present, No nasal discharge present and Other nasal findings present (Only mild nasal congestion) Face and sinus: Yes sinuses nontender Mouth: oropharynx normal Throat: Yes posterior oropharynx normal Eyes General: appearance normal, both eyes and all related structures Neck Neck: Yes normal visual inspection, Yes no lymphadenopathy, Yes trachea midline and Yes no JVD Thyroid: Thyroid normal Chest Chest palpation & inspection: normal inspection of the chest, normal palpation of entire chest wall and no tenderness Resp Other: Percussion note resonant, good breath sounds on both sides, no wheezes rhonchi or crepitations are heard. Cardio Palpation: normal PMI Rate: regular rate Rhythm: regular rhythm Heart sounds: no gallops and no murmurs Peripheral pulses: Peripheral pulses 2+ throughout GI Palpation (GI): Soft to palpation, nontender, No hepatosplenomegaly present and no masses Auscultation: normal bowel sounds Back/Spine/Pelvis Thoracic/Lumbar Spine: thoracic and lumbar spine normal to inspection Skin General skin exam: no rashes or lesions noted Neuro General: patient oriented x3 and no focal motor deficits Cranial nerves: Yes CN's II-XII intact bilaterally Extrem General: Yes normal to inspection, Yes no clubbing, cyanosis or edema and Yes no calf tenderness Psych Speech and movement: Normal speech and movement present Results Reviewed Results Reviewed: Chest x-ray at [facility] on 09/12 was unremarkable Assessment & Plan Assessment & Plan (1) Cough due to bronchospasm: Comment: COUGH IS SECONDARY TO POST INFECTION, HYPERSENSITIVE UPPER AIRWAYS/ REACTIVE AIWAYS SYNDROME . HYPERSENSITIVITY CAUSED BY VIRAL INFECTION ) THIS TYPE OF COUGH USUALLY LOST FROM 8-12 WEEKS. Code(s): J98.01 - Acute bronchospasm Category: Medical Plan: EDUCATED THE PATIENT ABOUT NATURE OF HIS COUGH. TX : ADVAIR 250-51 INHALATION B.I.D.. ALBUTEROL HFA 2 PUFFS Q 6 HOURS P.R.N.. MAY USE HERBAL TEAS SUCH THROAT COAT ONCE OR TWICE A DAY. OTC COUGH MEDICINE SUCH DELSYM 2 TSP AT BEDTIME. HOPEFULLY THE COUGH WOULD RESOLVE IN ABOUT 2 WEEKS. RV IF COUGH DOES NOT RESOLVE COMPLETELY. (2) Asthma: Comment: His cough is sec .to bronchospasm ( asthma variant ) Currently improved with use of Advair 250-50 1 inhalation b.i.d.. And use albuterol HFA 2 puffs Q 4-6 hours p.r.n. which he needs only rarely. Code(s): J45.909 - Unspecified asthma, uncomplicated Category: Medical Plan: UNDER COUGH Medications: New fluticasone propion-salmeterol 250-50 mcg/dose (Advair Diskus) 1 inh inhalation BID 60 ea 1RF Bronchospasm 30 days Coding Level of Care Code Est Pt Level 3 (71802) Diagnoses Cough due to bronchospasm J98.01 Asthma J45.909
--- OUTSIDE RECORDS SUMMARY | 2024-10-27 18:53 | XMS_ITS | Encounter Summary ---
Author Organization [facility], Address [address] [place] [address] Phone Care Team Providers Care Ticket Maker Name Role Phone Zaheer Munoz MD Primary Care Provider [phone] Encounter Details Date Type Department Care Team (Late st Contact Info) Description 01/08/2024 Documentation Only [facility], [address] [place] [id number] Jerry [place], [place] [address] [place] [id number] Social History Tobacco Use Types Packs/Day Years [...] on filedocumented in this encounter Care Teams Ticket Maker Relationship Specialty Start Date End Date Zaheer Munoz MD PCP - General Internal Medicine 01/08/24 documented as of this encounter
--- OUTSIDE RECORDS SUMMARY | 2024-10-27 18:53 | XMS_ITS | Encounter Summary ---
Author Organization [facility] Address [address] [place] [address] Care Team Providers Care Forklift Driver Name Role Phone Zaheer Munoz MD Primary Care Provider [phone] Reason for Visit * Reason Comments er follow up [facility] 09/25 Encounter Details Date Type Department Care Team ([facility] Contact Info) Description 10/01/2024 10:00 AM EST Office Visit Adult Medicine [facility] [address] [place] [address] Vicki Zapien PA [address] [place] [address] Viral upper respiratory tract infection (Primary Dx); Moderate persistent asthma with exacerbation Social History Tobacco Use Types Packs/Day Years [...] your loved ones. For example, child and youth program assistant or elderly care for an older [...] at Not on file Legal Sex Male 11:56 AM EST Gender Identity Not on file Sexual Orientation Not on file documented as of this encounter Last Filed Vital Signs Vital Sign Reading Time Taken Comments Blood Pressure 126/88 10/01/2024 9:57 AM EST Pulse 88 10/01/2024 9:57 AM EST Temperature 36.2 ??C (97.2 ??F) 10/01/2024 9:57 AM ES T Respiratory Rate 18 10/01/2024 9:57 AM EST Oxygen Saturation 97% 10/01/2024 9:57 AM EST Inhaled Oxygen Concentration - - Weight 93.4 kg (206 lb) 10/01/2024 9:57 AM EST Height 165.1 cm (5' 5 ) 10/01/2024 9:57 AM EST Body Mass Index 34.28 10/01/2024 9:57 AM EST documented in this encounter Ordered Prescriptions Prescription Sig Dispense Quantity Refills Last Filled Start Date End Date benzonatate (TESSALON) 100 mg capsule Take 1 capsule (100 mg total) by mouth 3 (three) times a day if needed for cough. Do not crush or chew. 42 capsule 10/01/2024 predniSONE (DELTASONE) 10 mg tablet Take 30 mg PO daily for 3 days, then take 20 mg PO daily for 3 days, then 10 mg PO daily for 3 days, then stop 18 tablet 10/01/2024 documented in this encounter Progress Notes * KELLY Velázquez - 10/01/2024 10:00 AM EST CHIEF COMPLAINT: er follow up ([facility] 09/25) IDENTIFIER: Joshua Christina is a 59 y.o. old male. I have obtained verbal consent from Joshua Christina prior to the recording. I have advised Joshua Christina that he may refuse the recording and require the recording to be turned off at any time during this encounter. History of Present Illness 59-year-old male with asthma presenting to the office for evaluation. Patient previously diagnosed with RSV infection on 08/29/24 at [facility]. Subsequently, [facility] with complaints of shortness of breath and fatigue and nonproductive cough ongoing for a month, but worsening over the last 3 days along with development of bodyaches and increasedfatigue. At that time, he tested positive for influenza A (influenza B, RSV, and COVID-19 negative). Chest x-ray without acute cardiopulmonary abnormality. Patient was prescribed Tamiflu as well as prednisone 60 mg QD x 5 days. Today, patient reports slight improvement but continues to experience a persistent cough, fatigue, postnasal drip, and clear rhinorrhea. Minimal wheezing is noted. Patient denies fever or shaking chills. Reports completing course of prednisone and has tried Delsym along with mixture of honey, lemon, and aloe without relief. States he has tried an albuterol inhaler (unable to verify if ) without improvement; denies using a controller inhaler. States he had been following with general merchandise manager at [facility] but has not scheduled recent appointment. He also states he received monthly immunotherapy for 7 years but has not returned back to allergy. Results --//-- ROS: GENERAL: No fever, shaking chills HEENT: See HPI RESPIRATORY: No acute shortness of breath; see HPI CARDIOVASCULAR: No chest pain PAST MEDICAL HISTORY: Patient Active Problem List Diagnosis Date Noted Hypercholesteremia 07/02/2024 Seasonal allergies 07/02/2024 Stage 3a chronic kidney disease (CMS/HCC) 04/17/2024 Gastroesophageal reflux disease without esophagitis 05/24/2023 Insomnia 05/24/2023 COVID-19 08/21/2022 Obesity (BMI 30.0-34.9) 07/31/2022 Cough variant asthma 09/21/2020 Recurrent sinus infections 08/23/2020 Calcific tendinitis of left shoulder 03/06/2019 Shoulder impingement, left 03/06/2019 Prediabetes 09/01/2018 Osteoarthritis of both shoulders 07/25/2018 Essential hypertension, benign 10/23/2010 Past Surgical History: Procedure Laterality Date COLONOSCOPY 08/30/14 tics; repeat in ten yrs TONSILLECTOMY WISDOM TOOTH EXTRACTION SOCIAL HISTORY: Social History Tobacco Use Smoking status: Never Smokeless tobacco: Never Substance Use Topics Alcohol use: Yes FAMILY HISTORY: Family History Problem Relation Name Age of Onset Diabetes Mother HTN, [place], kidney stones Diabetes Father Hypertension Maternal Grandmother Hypertension Paternal Grandmother Family Status Relation Name Status Mother (Not Specified) Father (Not Specified) MGM (Not Specified) PGM (Not Specified) No partnership data on file MEDICATIONS DISCONTINUED/REORDERED: Medications Discontinued During This Encounter Medication Reason bisacodyL (DULCOLAX) 5 mg EC tablet Therapy completed polyethylene glycol (Golytely) 236-22.74-6.74 -5.86 gram solution Therapy completed ACTIVE MEDICATIONS: Outpatient Medications Marked as Taking for the 10/01/24 encounter (Office Visit) with KELLY Velázquez Medication Sig Dispense Refill atorvastatin (LIPITOR) 40 [...] (one) time each day. 90 tablet 1 [DISCONTINUED] bisacodyL (DULCOLAX) 5 mg EC tablet Take 2 tablets by mouth right before beginning bowel prep. See instructions provided by the office 2 tablet 0 [DISCONTINUED] polyethylene glycol (Golytely) 236-22.74-6.74 -5.86 gram solution Take 4L by mouth once for one dose. May substitue any PEG. Starting at 6PM the night before your procedure drink 1 8ozglasses at your own pace until you complete half of the gallon. Finish 2nd half of the gallon 5 hours before your procedure. 4000 mL 0 ALLERGIES: No Known Allergies PHYSICAL EXAM: Visit Vitals BP 126/88 Pulse 88 Temp 36.2 ??C (97.2 ??F) (Temporal) Resp 18 Ht 1.651 m (65 ) Wt 93.4 kg (206 lb) SpO2 97% BMI 34.28 kg/m?? Smoking Status Never BSA 2 m?? Wt Readings from Last 5 Encounters: 10/01/24 93.4 kg (206 lb) 09/22/24 93 kg (205 lb) 08/21/24 86.2 kg (190 lb) 08/06/24 93.3 kg (205 lb 9.6 oz) 03/11/24 90.7 kg (200 lb) BMI plan is deferred until next visit Physical Exam APPEARANCE: Alert, obese, and in no acute distress HEART: RRR with normal S1 and S2, no murmurs, no gallops LUNG: Bilateral lung bases with faint expiratory wheeze otherwise clear throughout LABS: See HPI IMAGING: See HPI IMPRESSION: 1. Viral upper respiratory tract infection 2. Moderate persistent asthma with exacerbation Assessment & Plan Patient reporting asthma symptoms have been poorly controlled for 3 months and is advised to contact his general merchandise manager at [facility] as well as his bilingual medical assistant; he will contact the office with provider specific information, if he requires updated referral. The meanwhile, will extend course of prednisone for 9-day taper and prescribed Tessalon Perles. May continue with albuterol, as directed; again, contact the office if this is Medication and lab orders: No orders of the defined types were placed in this encounter. Other orders: None KELLY Velázquez on 10/01/2024 at 11:41 AM EST This note was dictated using voice recognition software. Please pardon any grammatical or syntax errors. documented in this encounter Plan of Treatment Upcoming Encounters Date Type Department Care Team (Late st Contact Info) Description 01/05/2025 10:00 AM EDT Appointment [facility] Endoscopy [address] [place] [address] Bhavik Pinto, [address] [address] 02/04/2025 8:30 AM EDT Office Visit Adult Medicine [address] [phone] Eric Francois PA [address] [place] [address] documented as of this encounter Visit Diagnoses Diagnosis Viral upper respiratory tract infection- Primary Acute upper respiratory infections of unspecified site Moderate persistent asthma with exacerbation Unspecified asthma, with exacerbation documented in this encounter Discontinued Medications Medication Sig Discontinue Reason Start Date End Da te bisacodyL (DULCOLAX) 5 mg EC tablet Take 2 tablets by mouth right before beginning bowel prep. See instructions provided by the office Therapy completed 08/17/2024 10/01/2024 polyethylene glycol (Golytely) 236-22.74-6.74 -5.86 gram solution Take 4L by mouth once for one dose. May substitue any PEG. Starting at 6PM the night before your procedure drink 1 8oz glasses at your own pace until you complete half of the gallon. Finish 2nd half of the gallon 5 hours before your procedure. Therapy completed 08/17/2024 10/01/2024 documented as of this encounter Additional Health Concerns Assessment Noted Time PHQ-9 Depression Total Score: 3 09/29/19 25 11:18 AM EST documented as of this encounter Care Teams Forklift Driver Relationship Specialty Start Date End Date Zaheer Munoz MD [address] [place] [id number] PCP - General Internal Medicine 06/20/21 documented as of this encounter
--- OUTSIDE RECORDS SUMMARY | 2024-10-27 18:53 | XMS_ITS | Clinical Summary ---
Author Organization [facility], Address [address] [place] [address] [place] [address] Phone Care Team Providers Care Mixer Whipped Topping Name Role Phone Zaheer Munoz MD Primary Care Provider [phone] Allergies No known active allergies Medications hydroCHLOROthia [...] patient's age to complete this topic Insurance [facility] Care Teams Mixer Whipped Topping Relationship Specialty Start Date End Date Zaheer Munoz MD PCP - General Internal Medicine 01/08/24
--- OUTSIDE RECORDS SUMMARY | 2024-10-27 18:53 | XMS_ITS | Clinical Summary ---
Author Organization [facility] Address [address] [place] [address] Phone Care Team Providers Care Installation Service Representative Name Role Phone Zaheer Munoz MD Primary Care Provider Allergies No known active allergies Medications traZODone (DESYREL) 100 mg tablet TAKE 1 TABLET BY MOUTH EVERYDAY AT BEDTIME 4 Active cetirizine (ZyrTEC) 10 mg tablet Take 10 mg by mouth 1 (one) time each day Active melatonin 10 mg tablet Take by mouth. Take 1 Tablet by mouth at bedtime. - Oral Active FA/mv,Ca,iron, min/lycopene/l ut (MULTIVITAL ORAL) Take by mouth. - Oral Active valsartan (DIOVAN) 160 mg tablet Take 1 tablet (160 mg total) by mouth 1 (one) time each day. 90 tablet 1 4 Active hydroCHLOROthi azide (HYDRODIURIL) 25 mg tablet Take 1 tablet (25 mg total) by mouth 1 (one) time each day. 90 tablet 1 4 Active montelukast (SINGULAIR) 10 mg tablet TAKE 1 TABLET BY MOUTH EVERYDAY AT BEDTIME 90 tablet 1 4 Active atorvastatin (LIPITOR) 40 mg tablet TAKE 1 TABLET BY MOUTH EVERY DAY 90 tablet 1 5 Active predniSONE (DELTASONE) 10 mg tablet Take 30 mg PO daily for 3 days, then take 20 mg PO daily for 3 days, then 10 mg PO daily for 3 days, then stop 18 tablet 5 Active benzonatate (TESSALON) 100 mg capsule Take 1 capsule (100 mg total) by mouth 3 (three) times a day if needed for cough. Do not crush or chew. 42 capsule 5 025 Active bisacodyL (DULCOLAX) 5 mg EC tablet Take 2 tablets by mouth right before beginning bowel prep. See instructions provided by the office 2 tablet 4 025 Discontin ued(Thera py completed ) polyethylene glycol (Golytely) 236-22.74-6.74 -5.86 gram solution Take 4L by mouth once for one dose. May substitue any PEG. Starting at 6PM the night before your procedure drink 1 8oz glasses at your own pace until you complete half of the gallon. Finish 2nd half of the gallon 5 hours before your procedure. 4000 mL 4 025 Discontin ued(Thera py completed ) Active Problems Problem Noted Date Diagnosed Date [...] Encounters Date Type Department Care Team Description 10/01/2024 10:00 AM EST Office Visit Adult Medicine [address] [address] Vicki Zapien PA Viral upper respiratory tract infection (Primary Dx); Moderate persistent asthma with exacerbation 09/22/2024 11:30 AM EST Office Visit Adult Medicine [address] [phone] Kristina Boo MD RSV infection (Primary Dx); Fatigue, unspecified type; Essential hypertension, benign; Prediabetes 09/22/2024 Nurse Triage Adult [address] [phone] Zaheer Munoz MD Fatigue; Dizziness 08/28/2024 Telephone Gastroenterology - [place] [address] [facility] [address] [place] [address] Bhavik Pinto, Special Procedure 08/18/[address] [phone] Zaheer Munoz MD Referral (Opthamology) 08/06/2024 9:45 AM EST Office Visit [address] [phone] Zaheer Munoz MD Essential hypertension, benign (Primary [...] 6mo and older 05/06/2017,05/06/2013,05/16/2011 Influenza, Unspecified 05/23/2023,05/19/2021 MMR, measles mumps and rubel la Live (Priorix; M-M-R II) 12mo and older 10/17/2024 Pfizer SARS-CoV-2 COVID-19, mRNA, LNP-S, preservative free 05/26/2021 Pneumococcal conjugate 20 va lent (Prevnar 20, PCV 20) 2mo and older 10/17/2024 Pneumococcal polysaccharide 23 valent (Pneumovax 23) 2yo [...] Father Hypertension Maternal Grandmother Diabetes Mother HTN, [place], kidney stones Hypertension Paternal Grandmother Relation Name [...] care for your loved ones. For example, children's lunchroom supervisor or elderly care for an older adult? [...] on file Sexual Orientation Not on file Obstetrics History Last Filed [...] Mass Index 34.28 10/01/2024 9:57 AM EST Plan of Treatment Upcoming Encounters Date Type Department Care Team (Late st Contact Info) Description 01/05/2025 10:00 AM EDT Appointment [facility] Endoscopy [address] [place] [phone] Bhavik Pinto DO 175 [facility] [address] [place] [address] 02/04/2025 8:30 AM EDT Office Visit Adult Medicine [facility] [address] [place] [address] Eric Francois PA [address] [place] [address] Health Maintenance Due Date Last Done Comments Colorectal Cancer Screening: Colonoscopy 07/28/2022 HIV Screening 07/28/2022 RSV Immunization Patients 60+ Years Old (1 - Risk 60-74 years 1-dose series) 2024 Hypertension/CHF/CAD Annual BMP Blood Test 06/26/2025 06/26/2024, 05/29/2024, 05/29/2024 Social Influencers of Health Screening 07/30/2025 07/30/2024 Depression Screening 09/29/2025 09/29/2024 Cholesterol Screening (Lipid Panel) 06/26/2029 06/26/2024, 11/22/2023 DTaP,Tdap,and Td Vaccines (3 - Td or Tdap) 04/14/2031 04/14/2021, 02/14/2011 Zoster Vaccines Completed 01/26/2018, 10/18, 09/25/2014 Hepatitis C Screening Completed 08/29/2018 COVID-19 Vaccine Completed 04/28/2024, 12/2022, 06/05/2022, Additional history exists Influenza Vaccine Completed 04/28/2024, , 05/23/2023, Additional history exists MMR Vaccines Aged Out 10/17/2024 No longer eligi ble based on patient's age to complete this topic Pneumococcal Vaccine: 50+ Years Completed 10/17/2024, 07/31/2022 Pneumococcal Vaccine: Pediatrics (0 to 5 Years) and At-Risk Patients (6 to 64 Years) Completed 10/17/2024, 07/31/2022 HIB Vaccines Aged Out No longer eligi [...] patient's age to complete this topic Meningococcal B Vacine Aged Out No lo nger eligible based on patient's age to complete [...] Routine 08/06/2024 10:38 AM EST Weight gain COMPREHENSIVE METABOLIC PANEL Routine 06/26/2024 8:40 AM EST Pre-diabetes Hypercholesterolemi a Hypopotassemia Encounter for long-term (current) use of medications LIPID PANEL WITH REFLEX TO DIRECT LDL Routine 06/26/2024 8:40 AM EST Pre-diabetes Hypercholesterolemi a Hypopotassemia Encounter for long-term (current) use of medications HEPATITIS C SCREENING Routine 08/29/2018 from Last 3 Months or Most Recently Relevant to Health Maintenance Results * Thyroid stimulating hormone with reflex to free t4 and free t3 (08/06/2024 10:38 AM EST) [facility] Signature TSH 2.67 0.40 - 4.00 mcIU/mL LAB CHEMISTRY METHOD 08/06/2024 2:47 PM EST [facility] Blood Venous blood specimen / Unknown Venipuncture / Unknown 08/06/2024 10:38 AM EST 08/06/2024 10:38 AM EST us Zaheer Munoz MD LAB BLOOD ORDERABLES Final Resu lt [facility] [address] [place] [address], [place] [phone] * (ABNORMAL) Lipid panel with reflex to direct LDL (06/26/2024 8:40 AM EST) Cholesterol 164 0 - 200 mg/dL LAB CHEMISTRY METHOD 06/26/2024 12:29 PM EST [facility] Triglycerides 238(H) 0 - 150 mg/dL LAB CHEMISTRY METHOD 06/26/2024 12:29 PM EST [facility] HDL 67 >=40 mg/dL LAB CHEMISTRY METHOD 06/26/2024 12:29 PM [facility] LDL Calculated 49 0 - 100 mg/dL LAB CHEMISTRY METHOD 06/26/2024 12:29 PM EST [facility] VLDL Cholesterol Blair 47.6 mg/dL LAB CHEMISTRY METHOD 06/26/2024 12:29 PM EST [facility] Non HDL Chol. (LDL+VLDL) 97 <145 mg/dL LAB CHEMISTRY METHOD 06/26/2024 12:29 PM [facility] Chol/HDL Ratio 2.4 0.0 - 4.4 LAB CHEMISTRY METHOD 06/26/2024 12:29 PM [facility] Blood Venous blood specimen / Unknown Venipuncture / Unknown 06/26/2024 8:40 AM EST 06/26/2024 8:40 AM EST us Zaheer Munoz MD LAB BLOOD ORDERABLES Final Resu lt [facility] [address] [place] [address], [place] [phone] * (ABNORMAL) Comprehensive metabolic panel (06/26/2024 8:40 AM EST) Sodium 138 133 - 145 mmol/L LAB CHEMISTRY METHOD 06/26/2024 12:28 PM [facility] Potassium 4.0 3.5 - 5.5 mmol/L LAB CHEMISTRY METHOD 06/26/2024 12:28 PM [facility] Chloride 99 96 - 110 mmol/L LAB CHEMISTRY METHOD 06/26/2024 12:28 PM [facility] CO2 31 21 - 32 mmol/L LAB CHEMISTRY METHOD 06/26/2024 12:28 PM [facility] Anion Gap 8 3 - 11 LAB CHEMISTRY METHOD 06/26/2024 12:28 PM [facility] Glucose 107(H) 70 - 100 mg/dL LAB CHEMISTRY METHOD 06/26/2024 12:28 PM [facility] BUN 18 5 - 25 mg/dL LAB CHEMISTRY METHOD 06/26/2024 12:28 PM [facility] Creatinine 1.21 0.70 - 1.30 mg/dL LAB CHEMISTRY METHOD 06/26/2024 12:28 PM [facility] eGFR 69 >=60 mL/min/1. 73m2 LAB CHEMISTRY METHOD 06/26/2024 12:28 PM [facility] Comment:Calculation based on the??Chronic Kidney Disease Epidemiology Collaboration (CKD-EPI) equation refit??without adjustment for race. BUN/Creatinine Ratio 14.9 LAB CHEMISTRY METHOD 06/26/2024 12:28 PM [facility] Calcium 10.2 8.5 - 10.5 mg/dL LAB CHEMISTRY METHOD 06/26/2024 12:28 PM [facility] AST (SGOT) 50(H) 10 - 42 unit/L LAB CHEMISTRY METHOD 06/26/2024 12:28 PM [facility] ALT (SGPT) 96(H) 10 - 60 unit/L LAB CHEMISTRY METHOD 06/26/2024 12:28 PM EST [facility] Alkaline Phosphatase 66 42 - 121 unit/L LAB CHEMISTRY METHOD 06/26/2024 12:28 PM [facility] Total Protein 7.6 6.0 - 8.0 g/dL LAB CHEMISTRY METHOD 06/26/2024 12:28 PM [facility] Albumin 4.6 3.2 - 5.0 g/dL LAB CHEMISTRY METHOD 06/26/2024 12:28 PM [facility] Total Bilirubin 0.7 0.0 - 1.4 mg/dL LAB CHEMISTRY METHOD 06/26/2024 12:28 PM [facility] Blood Venous blood specimen / Unknown Venipuncture / Unknown 06/26/2024 8:40 AM EST 06/26/2024 8:40 AM EST Zaheer Munoz MD LAB BLOOD ORDERABLES Final Resu lt [facility] [address] [place] [address], * Hepatitis C Screening (08/29/2018) Pathologist [facility] Hepatitis C Screening abstracted Venecia Rivas MD HEALTH MAINTENANCE Final Result from Last 3 Months or Most Recently Relevant to Health Maintenance Insurance [facility] Care Teams Installation Service Representative Relationship Specialty Start Date End Date Zaheer Munoz MD [address] [place] [address] [phone] PCP - General Internal Medicine 06/20/21
--- OUTSIDE RECORDS SUMMARY | 2024-10-27 18:53 | XMS_ITS | Encounter Summary ---
Author Organization [facility], Address [address] [place] [address] Phone Care Team Providers Care Print Controller Name Role Phone Zaheer Munoz MD Primary Care Provider [phone] Encounter Details Date Type Department Care Team (Late st Contact Info) Description 04/16/2024 Documentation Only [facility], [address] [place] [address] Hansa Echeverria [address] [place] [address] Social History Tobacco Use Types Packs/Day Years [...] on filedocumented in this encounter Care Teams Print Controller Relationship Specialty Start Date End Date Zaheer Munoz MD PCP - General Internal Medicine 01/08/24 documented as of this encounter
--- OUTSIDE RECORDS SUMMARY | 2024-10-27 18:53 | XMS_ITS | Encounter Summary ---
Author Organization [facility], Address [address] [place] [address] Phone Care Team Providers Care Trading Floor Operator Name Role Phone Zaheer Munoz MD Primary Care Provider Encounter Details Date Type Department Care Team (Late st Contact Info) Description 04/17/2024 Documentation Only [facility], [address] [place] [address] Bassam Michelle, DO [address] [place] [phone] Social History Tobacco Use Types Packs/Day Years [...] on filedocumented in this encounter Care Teams Trading Floor Operator Relationship Specialty Start Date End Date Zaheer Munoz MD PCP - General Internal Medicine 01/08/24 documented as of this encounter
== END 2024-10-27 16:17 | disposition home or self-care (01) ==
LOC: HO.HPS 15:36
PROVIDERS: PCP Internal Medicine; Visit Provider Internal Medicine
DX: J98.01 Acute bronchospasm (principal)
CPT/HCPCS: 99213